=== PATIENT | female | born 1935 | race Caucasian/White ===

== ENCOUNTER 2025-05-16 11:24 | Outpatient (CLI) | payer MEDICARE, OTHER, SELFPAY ==
--- NOTE | 2025-05-16 11:31 | CT_ITS ---
APPROVED REPORT Fitness Instructor: CLINICAL INDICATION Chest Pain TECHNIQUE Image Acquisition: A 128 slice MDCT scanner ([employer]) was used for data acquisition. A noncontrast coronary calcium scan was performed. A CT attenuation threshold of 130 Hounsfield units (HU) was used for the detection of calcium in contiguous voxels of 1 sq mm in area to be counted as individual lesions. Bolus tracking in the ascending aorta with a threshold of 180 HU was performed. Immediately afterwards, ECG synchronized cardiac CT was then performed from the cardiac base to apex using retrospective gating with ECG tube current modulation. A total of 85 mL of Isovue 370 mg/mL contrast medium was administered at 5 mL/sec followed by a saline flush using a biphasic injection protocol. A tube voltage of 120 KVp was used. The patient received the following medications prior to the cardiac CT. 0.4 mg of sublingual nitroglycerin The average heart rate at the time of acquisition was 57 bpm and regular. Image Reconstruction Transaxial images were reconstructed at 0.67 mm slide thickness. Data was reviewed interactively on an advanced workstation capable of 2 and 3-dimensional displays in all conventional reconstruction formats, including multiplanar reformations, maximum intensity projections, curved multiplanar reformations, and volume rendered reconstructions. When applicable, selected routine images describing the relevant coronary anatomy and pathology were saved and sent to PACS. Complications None Technical Quality Overall image quality was fair. Coronary artery opacification was adequate. Total DLP (Dose-Length Product) is 2283.8 mGy-cm. The reported value represents the total of one or more individual components during the CT acquisition of this date and at this time, and as such, the same value may appear in more than one CT report depending on the interpreting/reporting physicians. COMPARISON None FINDINGS CT Coronary Calcium Scoring LMA (Left Main Artery) = 0 LAD (Left Anterior Descending) = 0 LCX (Left Coronary Circumflex) = 0 RCA (Right Coronary Artery) = 0 Total Calcium Score = 0 using the AJ-130 method. The interpretation of the calcium heart score is based on the following continuum*: 0 = no calcified plaque detected (risk of coronary artery disease is very low ??? less than 5%) 1-10 = calcium detected in extremely minimal levels (risk of coronary diseases is still low ??? less than 10%) 11-100 = mild levels of plaque detected with certainty (mild or minimal narrowing of heart arteries is likely) 101-400 = definite,at least moderate levels of plaque detected (relatively high risk of a heart attack within 3-5 years) >401-999 = extensive levels of plaque detected (high risk of heart attack, high levels of vascular disease are present, high likelihood of at least one significant coronary narrowing) *The calcium heart score quantifies the burden of coronary calcification/plaque in the coronary arteries. The calcium heart score is not able to evaluate the presence or burden of non-calcified (i.e. soft) plaque. There is calcification in the aortic valve, mitral annulus, and the ascending, transverse, and descending thoracic aorta. Coronary CT Angiography The coronary arterial system is right dominant. Quantitative Stenosis Grading: Left Main (LM): The left main originates normally from the left sinus of Valsalva. The LM bifurcates into the left anterior descending artery and left circumflex artery. The LM is patent with no evidence of atherosclerosis. Left Anterior Descending (LAD) and Diagonal Branches: The LAD gives off 3 diagonal branch(es). The LAD and its branches are patent with no evidence of atherosclerosis. There is no evidence of LAD-myocardial bridge. Left Circumflex (LCX) and Obtuse Marginals (OM): The LCX gives off 1 Obtuse Marginal (OM) branch(es). The LCX and its branches are patent with no evidence of atherosclerosis. Right Coronary Artery (RCA): The RCA originates normally from the right sinus of Valsalva. The RCA gives off a posterior descending artery (PDA) and posterolateral (PL) branches. The RCA and its branches are patent with no evidence of atherosclerosis. Non-Coronary Cardiac Findings: Analysis of the left ventricular (LV) structure and function was performed after 3-D reconstruction of the LV from axial images, with user-corrected automatic contouring for assessment of LV volumes and user-defined reconstruction from oblique planes for measurement of 3-D cardiac structure and function. -The left ventricle systolic function is normal. -There is no left atrial appendage filling defect. Two right pulmonary veins and two left pulmonary veins drain normally into the left atrium. -No pericardial thickening or calcification. -Central and branch pulmonary arteries in the jhadh-gw-zeso are unremarkable. -Thoracic aorta within the visualized thoracic aortic-branches in the tdwob-kx-vinh is unremarkable. Extracardiac Structures -Increase in pulmonary interstitial markings with ground glass opacities bilaterally. IMPRESSION -Fair image quality due to significant motion and blurring artifact (most notable in the proximal RCA segment interpretation). -Absence of coronary calcification with an Agatston score = 0 using the AJ-130 method. -No obvious evidence of significant flow-limiting atherosclerosis of the coronary arteries. -CAD-RADS 0. Management recommendations per ACC/AHA guidelines*, as clinically appropriate. -Calcification in the aortic valve, mitral annulus, and the ascending, transverse, and descending thoracic aorta. -Increase in pulmonary interstitial markings with ground glass opacities bilaterally. *Recommendations: CAD RADS 0: Reassurance. Consider non-atherosclerotic causes of chest pain. CAD RADS 1: Consider non-atherosclerotic causes of chest pain. Consider preventive therapy and risk factor modification. CAD RADS 2: Consider non-atherosclerotic causes of chest pain. Consider preventive therapy and risk factor modification, particularly for patients with nonobstructive plaque in multiple segments. CAD RADS 3: Consider further functional testing. Consider symptom-guided anti-ischemic and preventive pharmacotherapy as well as risk factor modification per published guideline statements. CAD RADS 4A: Consider further functional testing or invasive coronary angiography with revascularization per published guideline statements. Consider symptom-guided anti-ischemic and preventive pharmacotherapy as well as risk factor modification per published guideline statements. CAD RADS 4B: Invasive coronary angiography recommended with revascularization per published guideline statements. Consider symptom-guided anti-ischemic and preventive pharmacotherapy as well as risk factor modification per published guideline statements. CAD RADS 5: Consider invasive angiography and/or viability assessment with revascularization per published guideline statements. Consider symptom-guided anti-ischemic and preventive pharmacotherapy as well as risk factor modification per published guideline statements. CRITICAL RESULT None COMMUNICATION Per this written report The coronary and cardiac findings of this CCTA were reviewed, reported, and signed by Chandra Deras MD (Warper Tender) Conclusion Electronically signed by : Josselyn Deras MD 05/17/2025 14:09:09
[2025-05-16 11:44] VITALS: BMI 23.6
--- OUTSIDE RECORDS SUMMARY | 2025-05-16 12:08 | XMS_ITS | Continuity of Care Document ---
Author Organization [facility] [place] [facility] Address [address] [place] [address] Care Team Providers Care Track Vehicle Repairer Name Role Phone MATIAS SANCHEZ Furnace Fitter Unavailable CHASE BAKER Primary Care Provider Assessment No assessment recorded. Plan of Treatment Reminders Order Date Submit Date Provider Last Modified By Organization Details Last Modified Time Details Appointments OV EST 30 2024 11:30A M Matias Sanchez MD Not available Not available Not available OV EST 30 2024 01:30P M RICHIE KAUR NP, S Not available Not available Not available Lab None recorded. Referral None recorded. Procedures None recorded. Surgeries None recorded. Imaging XR, pelvis 2024 025 ely [facility], [address] [place], [address], 05/09/2025 15:54:09 Medication Orders bupivacai ne HCl 0.5 % (5 mg/mL) injection solution 2024 025 [id number] [facility] [id number], [address] [place], [address], 05/09/2025 15:54:09 triamcino lone acetonide 40 mg/mL suspensio n for injection 2024 025 [id number] [facility] [id number], [address] [place], [address], 05/09/2025 15:54:09 Patient TargetsNo targets recorded. Patient InstructionsNo instructions recorded. Reason for Referral None Reported. Results Created Date Observation Date Name Description Value Unit Range Abnormal Flag Note LastModifiedBy Organization Detail LastModifiedTime 05/01/20 elect rocar diogr am No observ ation record ed. [email or web address] Not Available 2024 11:51:28 05/01/2005/02/2025 elect rocar diogr am No observ ation record ed. RIKA Helton [address], [place], [address], 05/02/2025 14:08:16 05/09/20 XR, pelvi s No observ ation record ed. RIKA Stef [facility] [address] [place] [address] , [place], [address], 05/09/2025 13:50:42 05/11/2005/11/2025 , raciel fairchild, malaika id arter y [facility] [place] [facility] Ce Name: BRANDON AdairRAFIA ROGERS [facility] Medica [address] Phys: [place] [address] : 1934 Age: 89 Sex: F Acct: [id number] Loc: G.US PHONE #: Exam Date: 2024 Status : DEP CLI FAX #: Rad# [id number] Unit# [id number] Admit Date: 2024 EXAMS: CPT CODE: [id number] 682 CAROTI D DUPLEX DOPPLE R [id number] PROCED URE: US CAROTI D DOPPLE R BILATE RAL, 2024 8:41 AM CDT CLINIC AL INDICA TION: BILATE RAL ARTERY OCCLUS ION. TECHNI QUE: Real-t ree graysc zen, color flow and spectr al Dopple r sonogr aphic images were obtain ed of the extrac ranial caroti d system using a linear transd ucer. COMPAR NIRALI: Februa ry 2020 FINDIN GS: RIGHT: Common caroti d artery : 67-70 cm/s Daytime Caregiver al caroti d artery : 55-108 cm/s Customer Advocacy Manager al caroti d artery : 124 cm/s Right ICA/CC A ratio: 1.5 Plaque : Mild to modera te scatte red plaque Verteb ral artery : Antegr ashlee. 91 cm/s LEFT: Common caroti d artery : 91-150 cm/s Daytime Caregiver al caroti d artery : 82-117 cm/s Customer Advocacy Manager al caroti d artery : 133 cm/s Left ICA/CC A ratio: 0.8 Plaque : Mild scatte red plaque Verteb ral artery : Antegr ashlee. 67 cm/s IMPRES KRISTINA: No hemody namica lly signif icant stenos is (great er than 50%) within the extrac ranial machine learning intern al caroti d arteri es. Electr onical ly signed by: Zechariah perez MD 2024 11:37 AM EDT RP Workst ation: [id number] Electr onical ly Signed by ZECHARIAH PEREZ MD on 2024 at 1132 Report ed and signed by: ZECHARIAH TRAN MD PAGE 1 Signed Report (JOVAN NUED) [facility] [place] [facility] Name: BRANDON AdairRAFIA [facility] Medica l [employer] Phys: Lauren [place] [address] : 1934 Age: 89 Sex: F Acct: [id number] Loc: G. PHONE #: Exam Date: 2024 Status : DEP CLI FAX #: Rad# [id number] Unit# [id number] Admit Date: 2024 EXAMS: CPT CODE: [id number] 682 CAROTI D DUPLEX DOPPLE R [id number] CC: Seng Baker MD; Joana aguilera APRN Dictat ed Date/T ree: 2024 (1132) Techno logist : LINDSA Y DARBY Transc ribed Date/T ree: 2024 (1132) Transc riptio nist: DR.[email or web address] Santiago onic Signat ure Date/T ree: 2024 (1132) Printe d Date/T ree: 2024 (1140) BATCH NO: N/A PAGE 2 Signed Report CC'ed Logic: Orderi ng Provid er: JURGEN VAUGHN LL Attend ing Provid er: JURGEN VAUGHN LL Referr ing Provid er: JURGEN VAUGHN LL Consul ting Provid er: SAMUEL LOU [email or web address], [place], [address], 05/11/2025 17:03:41 Result Notes None recorded. Problems Name Problem SNOMED Code Status Onset Date Resolution Date Notes Provider Name and Address Organization Details Recorded Time Essential hypertension 36456486 Active 2022 RICHIE KAUR NP, S [facility] [employer] [facility],Jul[place] [address], [address], [place] - [facility] [place] [facility] [place] 3 12:21:15 Coronary arterioscleros is 62241854 Active 2022 RICHIE KAUR NP, [facility] [employer] [facility],Julissa te [address] [place] [address], [address], [place] - [facility] [place] [facility] [place] 3 12:21:17 Mitral valve regurgitation 78426001 Active 2022 RICHIE KAUR NP, S [facility] [employer] [facility],Julissa te [address] [place] [address], [address], [place] - [facility] [place] [facility] [place] 3 12:21:18 Tachycardia 4786695 Active 2022 RICHIE KAUR NP, [facility] [employer] [facility],Julissa te [address] [place] [address], [address], [place] - [facility] [place] [facility] [place] 3 12:21:19 Bradycardia 09261059 Active 2022 RICHIE KAUR NP, S [facility] [employer] [facility],Julissa te [address] [place] [address], [address], [place] [facility] 3 12:21:21 Diastolic dysfunction 2687465 Active 2022 Matias Sanchez MD [address] [place] [address],[address], [place], [address], [place] - [facility] [place] 3 10:59:58 Dyspnea on exertion 15427584 Active 2023 Matias Sanchez MD [address] [place] [address],[address], [place], [address], [place] [facility] [place] [facility] [place] 4 11:08:02 Chest pain 27990905 Active 2024 Matias Sanchez MD [address] [place] [address],[address], [place], [address], [place] - [facility] & [place] 5 11:17:19 Bilateral carotid artery occlusion 929534560 Active 2024 Matias Sanchez MD [address] [place] [address],[address], [place], [address], [place] [facility] [place] [facility] [place] 5 11:36:46 Problem Notes None recorded. Procedures Surgical History Date Name Laterality Status Provider Name and Address Organization Details Recorded Time Back Surgery completed Tracie LOWE - [facility] [place] [facility] [place] 04/05/2024 10:40:31 Partial hysterectomy completed Toshia Reynolds [facility] [place] [facility] [place] 05/28/2022 11:30:55 primary laminectomy excision of lumbar intervertebral disc completed Toshia Reynolds [facility] [place] [facility] [place] 05/28/2022 11:40:55 complete repair of rotator cuff completed Toshia Reynolds [facility] [place] [facility] [place] 05/28/2022 11:42:09 cholecystectomy completed Toshia Reynolds [facility] [place] [facility] [place] 05/28/2022 11:43:02 tonsillectomy completed Toshia Reynolds [facility] [place] [facility] [place] 05/28/2022 11:43:10 Imaging Results None recorded. Procedure Notes None recorded. Medical Equipment None Reported. Allergies No known drug allergies Medications Name Sig Start Date Stop Date Status Note LastModified by Organization Details LastModified Time metformin 500 mg tablet active Not Available Not Available Not Available biotin 5 mg capsule active Not Available Not Available N ot Available valacyclov ir 1 gram tablet 12/14 completed Not Available Not Available Not Available hydrocodon e 5 mg-acetami nophen 325 mg tablet NEEDED per pt 02/28 completed Not Available Not Available Not Available bupivacain e HCl 0.5 % (5 mg/mL) injection solution Take 2 mL by injectio n route. 2024 active Not Available Not Available Not Avai lable prednisone 20 mg tablet 03/13 completed Not Available Not Available Not Available prednisone 5 mg tablet active Not Available Not Available Not Available Protonix 20 mg tablet,del ayed release Take 2 tablets every day by oral route. 12/14 completed Not Available Not Available Not Available ciprofloxa bharath 500 mg tablet 03/13 completed Not Available Not Available Not Available meloxicam 7.5 mg tablet TAKE 1 TABLET BY MOUTH EVERY DAY active PCP raised dose to 15 mg once a day Not Available Not Available Not Available oxycodone- acetaminop hen 5 mg-325 mg tablet 12/14 completed Not Available Not Available Not Available estradiol 1 mg tablet Take 1 tablet every day by oral route. active Not Available Not Available No t Available Kenalog 10 mg/mL suspension for injection Take 40 mg by injectio n route. 02/28 completed Not Available Not Available Not Available meclizine 25 mg tablet 02/28 completed Not Available Not Available Not Available triamcinol one acetonide 40 mg/mL suspension for injection Take 1 mL by injectio n route. 2024 active Not Available Not Available Not Avai lable prednisone 2.5 mg tablet 08/10 completed Not Available Not Available Not Available cephalexin 500 mg capsule 07/17 completed Not Available Not Available Not Available nitroglyce rin 0.[address] by sublingu al route. 08/07 completed Not Available Not Available Not Available diclofenac sodium 75 mg tablet,del ayed release 08/10 completed Not Available Not Available Not Available clobetasol 0.05 % scalp solution 12/14 completed Not Available Not Available Not Available etodolac 500 mg tablet Take 1 tablet twice a day by oral route. 08/10 completed Not Available Not Available Not Available diazepam 5 mg tablet 09/13 completed Not Available Not Available Not Available amoxicilli n 500 mg-potassi um clavulanat e 125 mg tablet 03/13 completed Not Available Not Available Not Available bupivacain e (PF) 0.5 % (5 mg/mL) injection solution Take 20 mg by injectio n route. 02/28 completed Not Available Not Available Not Available duloxetine 20 mg capsule,de layed release Take 1 capsule every day by oral route. 12/14 completed Not Available Not Available Not Available duloxetine 30 mg capsule,de layed release Take 1 capsule every day by oral route. 08/10 completed Not Available Not Available Not Available PreserVisi on AREDS 4,296 mcg-226 mg-90 mg capsule Take 2 capsules every day by oral route. active Not Available Not Available No t Available aspirin 12/14 completed Not Available Not Available Not Available Vitamin D 08/10 completed Not Available Not Available Not Available Vitamin D3 active Not Available Not Av ailable Not Available Vitamin B12 active Not Available Not Available Not Available Linzess 145 mcg capsule TAKE ONE (1) CAPSULE BY MOUTH NEEDED active Not Available Not Available No t Available magnesium 200 mg (as magnesium oxide) chewable tablet Take 1 tablet every day by oral route. active Not Available Not Available No t Available Vitals None Recorded Social History Question Answer Notes LastModified by Organizat ion Details LastModified Time Tobacco Smoking Status Never Smoker Toshia trammell, [place] - [facility] [place] [facility] [place] 05/28/2022 11:30:40 What Is Your Level Of Caffeine Consumption? Moderate Information not available 09/13/2023 What Type Of Diet Are You Following? REGULAR Information not available 09/13/2023 What Was The Date Of Your Most Recent Tobacco Screening? 1935 Information not available 04/05/2024 Are You Passively Exposed To Smoke? No Information not available 04/05/2024 Sex: Unknown Functional Status Question Answer Note LastModified by Organizat ion Details LastModified Time Do you use any illicit or recreational drugs? No [email or web address] Information not available 08/10/2022 Do you or have you ever used any other forms of tobacco or nicotine? No Information not available 09/13/2023 What is your level of alcohol consumption? None [email or web address] Information not available 08/10/2022 What is your exercise level? Moderate [id number] Information not available 03/01/2023 Mental Status None recorded. Family History Relationship Description Onset Age of this Age Resolved Age Notes LastModified by Organization Details LastModified Time Mother Family history of malignant neoplasm [email or web address] Not available 2021 11:30:25 Medical History Condition Response Coronary Artery Disease Y Arthritis Y Low Blood Pressure Y GERD/Reflux Y Gynecological HistoryNo gynecological history recorded. Obstetrics History GPAL:G 0 P 0 0 0 0 Immunizations Vaccine Type Date Status Note Provider Nam e and Address Organization Details Recorded Time COVID-19, mRNA, LNP-S, PF, 100 mcg/0.5mL dose or 50 mcg/0.25mL dose 1 completed Yelena trammell, [place] - [facility] [place] 08/10/2022 11:21:35 Influenza, high-dose, quadrivalent, PF 1 completed Yelena trammell, [place] - [facility] [place] 08/10/2022 11:21:35 COVID-19, mRNA, LNP-S, PF, 100 mcg/0.5mL dose or 50 mcg/0.25mL dose 1 completed Yelena Sal null, [place] - [facility] [place] 08/10/2022 11:21:35 COVID-19, mRNA, LNP-S, PF, 100 mcg/0.5mL dose or 50 mcg/0.25mL dose 1 completed Yelena trammell, [place] - [facility] [place] 08/10/2022 11:21:35 Tdap 2 completed Yelena trammell, [place] [facility] [place] [facility] [place] 08/10/2022 11:21:35 zoster recombinant 2 completed Yelena Sal null, [facility] - [facility] [place] [facility] [place] 08/10/2022 11:21:35 zoster recombinant 2 completed Yelena Sal null, [facility] [place] [facility] [place] 08/10/2022 11:21:35 Pneumococcal conjugate PCV20, polysaccharide ROM817 conjugate, adjuvant, PF 2 completed Yelena Sal null, [place] - [facility] [place] [facility] [place] 08/10/2022 11:21:35 Influenza, high-dose, quadrivalent, PF 2 completed Not Available [facility] 05/09/2025 13:37:44 COVID-19, mRNA, LNP-S, bivalent, PF, 50 mcg/0.5 mL or 25mcg/0.25 mL dose 3 completed Not Available [facility] 05/09/2025 13:37:44 Influenza, high-dose, quadrivalent, PF 3 completed Not Available [facility] 05/09/2025 13:37:44 Influenza, high-dose, trivalent, PF 4 completed Not Available [facility] 05/09/2025 13:37:44 Past Encounters Encounter ID Performer Location Encounter Start Date Encounter Closed Date Diagnosis/Indication Diagnosis SNOMED-CT Code Diagnosis ICD10 Code Diagnosis IMO Codes Diagnosis Note [id number] RICHIE KAUR NP, S [place] [address] [place] [address] 05/01/2025 09:32:07 05/01/2025 11:13:45 Essential hypertension 73754127 I10 Tachycardia 0669008 R00. 0 Mitral irish ve regurgitation 16961037 I34.0 Coronary arteriosclerosis 69420273 I25.10 Diastolic dysfunction 35 91748 I51.9 Bilateral carotid artery occlusion 263265734 I65.23 [id number] Angina pectoris 95608410 0 I20.9 [id number] MD STEF Cook [address] [address] 05/09/2025 13:36:08 05/09/2025 14:36:11 Arthritis of left sacroiliac joint 0032758514 236233 M46.5 3605066884 Health Concerns Section Related Observation LastModified by Organization Detai ls LastModified Time None Recorded Concern Status LastModified by Organization Details LastModified Time None Recorded Payers Encounter Date Sequence Insurance Name Policy Number Policy Mccabe Covered Member ID Mccabe Member ID Guarantor Name 05/09/2025 1 [place] Cecilia Monica Kyle [id number] Cecilia Kyle 05/09/2025 2 DEVIN (MEDICARE SUPPLEMENT) Cecilia Kyle [id number] Cecilia Kyle Notes Date Note Type Note Provider Name and Address Organization Details Recorded Time 05/09/2025 text/html Left SI joint painHas seen pain mgmt in past for SI joint injections- at least a year and a half agoTakes MeloxicamPelvis x-ray in office 05.09.25 Onofre Bright MD [address] [place] [address],[address], [place], [address] [place] 05/09/2025 15:45:32 OBGyn Episode No OBEpisode recorded.
--- OUTSIDE RECORDS SUMMARY | 2025-05-16 12:08 | XMS_ITS | Clinical Summary ---
Author Organization [facility] PAT Cage T Address [address] [place] [address] Phone Care Team Providers Care Hand Cutter Apprentice Name Role Phone Felipe March Primary Care Provider [phone] Allergies No known active allergies Medications ESTRADIOL ORAL Take 1 mg by mouth daily. Active predniSONE (DELTASONE) 5 mg Oral Tablet Take 5 mg by mouth daily. Active ergocalciferol, vitamin D2, (VITAMIN D2 ORAL) Take by mouth daily. Active MULTIVITAMIN ORAL Take by mouth daily. Active BIOTIN ORAL Take by mouth daily. Active Surgical History Surgery Date Site/Laterality Comments HYSTERECTOMY partial ROTATOR CUFF REPAIR TONSILLECTOMY BACK SURGERY ERCP 11/16/2017 N/A ENDOSCOPIC RETROGRADE CHOLANGIOPANCREOGRAPHY with sphincterotomy and balloon sweep ; Surgeon: Noé Orozco DO; Location: [facility]; Service: Endoscopy Medical History Medical History Date Comments Arthritis Social History Tobacco Use Types Packs/Day Years Used Date Smoking Tobacco: Never Smokeless Tobacco: Never Alcohol Use Standard Drinks/Week Comments No 0 (1 standard drink = 0.6 oz pur e alcohol) Comments No Sex and Gender Information Value Date Recorded Sex Assigned at Not on file Legal Sex Female 1:54 PM EDT Gender Identity Not on file Sexual Orientation Not on file Last Filed Vital Signs Vital Sign Reading Time Taken Comments Blood Pressure 151/75 11/16/2017 3:00 PM EDT Pulse 67 11/16/2017 3:00 PM EDT Temperature 36.3 C (97.3 F) 11/16/2017 2:31 PM EDT Respiratory Rate 16 11/16/2017 3:00 PM EDT Oxygen Saturation 98% 11/16/2017 3:00 PM EDT Inhaled Oxygen Concentration - - Weight 73 kg (161 lb) 11/15/2017 1:17 PM EDT Height 170.2 cm (5' 7 ) 11/15/2017 1:17 PM EDT Body Mass Index 25.22 11/15/2017 1:17 PM EDT Plan of Treatment Health Maintenance Due Date Last Done Comments Wellness Exam Medicare 1938 DTaP/TDaP/Td (1 - Tdap) 1954 Pneumococcal Vaccine 50+ (1 of 1 - PCV) 1985 Zoster (1 of 2) 1985 Bone Density Screening 2000 RSV or 60+ (1 - 1-d ose 75+ series) 2010 COVID-19 Vaccine ( - 2024-2 6 season) 2025 Influenza Vaccine (#1) 2025 Hepatitis B Vaccine Aged Out No longe r eligible based on patient's age to complete this topic Meningococcal B Vaccine Aged Out No l onger eligible based on patient's age to complete this topic Insurance [employer] [place] [address] Care Teams Hand Cutter Apprentice Relationship Specialty Start Date End Date Felipe March PCP - General Family Medicine 03/09/14
--- OUTSIDE RECORDS SUMMARY | 2025-05-16 12:08 | XMS_ITS | Data Portability ---
Author Organization [place] - [facility] Formerly [facility] Address [address] [place] [address] Care Team Providers Care Radiator Cleaner Name Role Phone MATIAS SANCHEZ Home Support Worker Unavailable CHASE BAKER Primary Care Provider [phone] Assessment Encounter Date Assessment Date Assessment LastModified by Organization Details LastModified Time 09/13/2024 09/13/2024 Preoperative evaluation. She had a Myoview stress test done which showed no ischemia. Normal exercise EKG. She had moderate reduction in functional capacity but no EKG changes. Normal myocardial perfusion and normal left ventricular systolic function. She has some calcification of the valves on echocardiogram with mild mitral insufficiency and normal pressures in the heart with normal function at 60%. Chest pain is atypical. It has a aching that occurs on occasion. It is always at rest. No nitroglycerin use. No exertional pressure tightness or heaviness. Blood pressure and heart rate are under excellent control. We will continue the same medical regimen. She does take baby aspirin. She is okay to hold this for surgery. No further cardiac testing needed prior to surgery. Meds and chart reviewed in full today. Follow-up in Cardiology Clinic in 3 months. Last cardiac catheterization was 3 years ago and showed mild diffuse coronary disease Patient Education was printed, I have reviewed the Past Medical, Family, and Social Histories along with ROS and all orders in today's record, and have noted any changes. Medications, charts and records reviewed in full today. ECHO 08/24/24: Normal left ventricular size and function with an estimated ejection fraction is 60%. Mild calcification of the valves with mild mitral insufficiency and normal pressures in the heart - Myoview 08/24/24: 1. Normal exercise EKG. 2. Moderate reduction in functional capacity. 3. Intermediate risk Eagle treadmill score secondary to functional capacity. 4. Normal myocardial perfusion on Myoview imaging. 5. Normal left ventricular systolic function. ECHOCARDIOGRAM: 09/29/2023 - Estimated ejection fraction is 60-65%. There is mild concentric hypertrophy of the left ventricle. Normal mitral valve, with mild to moderate mitral insufficiency. PREVIOUS ECHOCARDIOGRAM:Aug with ejection fraction 65-70% [id number] mitral insufficiency PREVIOUS MYOVIEW STRESS TEST: 09/19/2020 - moderate reduction in functional capacity. Intermediate risk Eagle treadmill score. Ischemia of a moderate portion of the apical anterior wall on myocardial perfusion imaging. PREVIOUS CAROTID ULTRASOUND: 09/19/2020 - On the right, mild intimal thickening without discrete plaque. Elevated velocity of the ICA, increased since the prior study, now within range of 60-79% stenosis. On the left, interval increase in velocity of the ICA, now was in range of 60-79% stenosis. CTA neck would better assess. CARDIAC CATHETERIZATION:[facility] 2020 with mild coronary artery disease with normal left ventricular function and mild carotid artery stenosis by angiography. - Plan: No further cardiac testing needed prior to surgery Okay to hold aspirin 5-7 days prior to any procedure Monitor blood pressure and heart rate EKG at follow-up Follow-up in Cardiology Clinic in 3 months -Continue other current medications. -Continue aggressive risk factor modification. -Recommend LDL less than 70. -Encouraged regular exercise and activity. - This note was dictated using EdSurge software. If something is unclear, or does not make sense, please do not hesitate to contact our office at [phone] for clarification. [email or web address] Not available 09/13/2024 11:17:01 12/14/2024 12/14/2024 Doing very well. No difficulties with back surgery. Still has some weakness in the leg was no pain. EKG today shows normal sinus rhythm with a heart rate of [address] or T-wave changes. Blood pressure and heart rate are under excellent control. We will see her back in 6 months. She looks great. She is still getting around without any issues at all. I am not going to make any changes in the medical regimen. We will see her back in 6 months. Meds and chart reviewed in full today Patient had an echocardiogram and a stress test in July. Both of these came back fine. Mild mitral insufficiency. Normal pressures in the heart mild calcification of the valves. She does have carotid artery stenosis. We need to follow this every year to. Will do a carotid ultrasound at follow-up Patient Education was printed, I have reviewed the Past Medical, Family, and Social Histories along with ROS and all orders in today's record, and have noted any changes. Medications, charts and records reviewed in full today. - EKG today reveals Normal sinus rhythm with no ST or T-wave changes - LAST ECHO:08/24/24: Normal left ventricular size and function with an estimated ejection fraction is 60%. Mild calcification of the valves with mild mitral insufficiency and normal pressures in the heart. LAST ISCHEMIC EVAL:08/24/24: Normal exercise EKG. Moderate reduction in functional capacity. Intermediate risk Eagle treadmill score secondary to functional capacity. Normal myocardial perfusion on Myoview imaging. Normal left ventricular systolic function. PREVIOUS CAROTID ULTRASOUND: 09/19/2020 - On the right, mild intimal thickening without discrete plaque. Elevated velocity of the ICA, increased since the prior study, now within range of 60-79% stenosis. On the left, interval increase in velocity of the ICA, now was in range of 60-79% stenosis. CTA neck would better assess. LAST HEART CATH: 09/2020 with mild coronary artery disease with normal left ventricular function and mild carotid artery stenosis by angiography. LAST LDL: 09/26/2020 value of 119 LAST CNI: None on file. PAST C: None on file. Plan: Monitor blood pressure and heart rate Monitor cardiac symptoms Blood work as per primary care Follow-up in Cardiology Clinic in 6 months Repeat carotid ultrasound at follow-up -Continue other current medications. -Continue aggressive risk factor modification. -Recommend LDL less than 100. -Encouraged regular exercise and activity. - I, Asha Mendez, am scribing for, and in the presence of, Matias Sanchez MD. - I, Matias Sanchez M.D. performed the services as described in this documentation, as scribed by Asha Mendez in my presence, and it is both accurate and complete. - This note was dictated using EdSurge software. If something is unclear, or does not make sense, please do not hesitate to contact our office at [phone] for clarification. [email or web address] Not available 12/14/2024 11:36:38 05/01/2025 05/01/2025 Patient Educatio n was printed, I have reviewed the Past Medical, Family, and Social Histories along with ROS and all orders in today's record, and have noted any changes. Medications, charts and records reviewed in full today. - EKG today reveals sinus rhythm with a rate of 61 beats per minute, incomplete right bundle-branch block, poor R-wave progression, abnormal EKG. Blood pressure 128/82, heart rate 61, oxygen saturation 96%. Weight 155 lb. Weight is stable from prior. - LAST ECHO:08/24/24: Normal left ventricular size and function with an estimated ejection fraction is 60%. Mild calcification of the valves with mild mitral insufficiency and normal pressures in the heart. LAST ISCHEMIC EVAL:08/24/24: Normal exercise EKG. Moderate reduction in functional capacity. Intermediate risk Eagle treadmill score secondary to functional capacity. Normal myocardial perfusion on Myoview imaging. Normal left ventricular systolic function. PREVIOUS CAROTID ULTRASOUND: 09/19/2020 - On the right, mild intimal thickening without discrete plaque. Elevated velocity of the ICA, increased since the prior study, now within range of 60-79% stenosis. On the left, interval increase in velocity of the ICA, now was in range of 60-79% stenosis. CTA neck would better assess. LAST HEART CATH: 09/2020 with mild coronary artery disease with normal left ventricular function and mild carotid artery stenosis by angiography. - Plan: Carotid ultrasound CTA of the coronaries. Follow-up in six to eight weeks. - -Continue other current medications. -Continue aggressive risk factor modification. -Recommend LDL less than 70. -Encouraged regular exercise and activity. - This note was dictated using EdSurge software. If something is unclear, or does not make sense, please do not hesitate to contact our office at [phone] for clarification. [email or web address] Not available 05/01/2025 12:52:45 Plan of Treatment Reminders Order Date Submit Date Provider Last Modified By Organization Details Last Modified Time Details Appointments OV EST 30 2024 11:30A Lauren Sanchez MD Not available Not available Not available OV EST 30 2024 01:30P Lauren KAUR, RETAIL PRODUCT ADVISOR, S Not available Not available Not available Lab None recorded. Referral None recorded. Procedures None recorded. Surgeries None recorded. Imaging XR, pelvis 2024 ely [facility], [address] [place] [address] , [place], [address], 05/09/2025 15:54:09 CT, angiogram , coronary arteries, w/wo contrast 2024 025 [email or web address] Not available 05/09/2025 07:35:09 US, duplex, carotid artery 2024 [facility], [address] , [place], [address], 05/11/2025 11:42:07 electroca rdiogram 2024 025 uri [facility], [address] [place] [address] [address], [place], [address], 05/02/2025 11:44:14 electroca rdiogram 2024 025 [email or web address] [facility], [address] [place] [address] [address], [place], [address], 12/14/2024 11:36:58 Medication Orders bupivacai ne HCl 0.5 % (5 mg/mL) injection solution 2024 025 [facility] [id number], [address] [facility] [place], [address], 05/09/2025 15:54:09 triamcino lone acetonide 40 mg/mL suspensio n for injection 2024 025 [email or web address] [facility] [id number], [address] [facility] , [place], [address], 05/09/2025 15:54:09 Patient TargetsNo targets recorded. Patient Instructions Encounter Date Encounter Id Patient Instructions Last Modified By Organization Details Last Modified Time 02/28/2025 [id number] I have personall y reviewed the data obtained and entered from the scribe, manager medical affairs or nurse for this patient for this patient encounter. Patient with dizziness. Possible central versus peripheral vestibular dysfunction. Patient to begin vestibular exercises. Clinically no evidence of mastoiditis. Follow-up in 3-4 weeks. [email or web address] Not available 02/28/2025 14:40:32 Reason for Referral None Reported. Results Created Date Observation Date Name Description Value Unit Range Abnormal Flag Note LastModifiedBy Organization Detail LastModifiedTime 09/02/1909/02/2024 - ECHO w/spe c/col or flow [facility] Name: RAFIA GUY KEN [facility] Knock Knock Phys: Lauren Slaughter APRN [facility] [place] [address] : 1934 Age: 89 Sex: F Acct: [id number] Loc: GBALBIR PHONE #: [phone] Exam Date: 2024 Status : DEP CLI FAX #: Rad# [id number] Unit# [id number] Admit Date: 2024 EXAMS: CPT CODE: [id number] ECHO W/SPEC /COLOR FLOW [id number] Reason for study: Dyspne a Left ventri cular diasto le: 5.1 Left ventri cular systol e: 3.2 Septal wall thickn ess: 0.9 Technology Resource Teacher ior wall thickn ess: 1.0 Right ventri cular diasto le: 1.1 Left Atrium : 3.0 Aortic root: 3.1 TR veloci ty: 2.59 m/s Impres kristina: 1. Normal left ventri cular size and functi on with an estima elisa ejecti on fracti on is 60% 2. No segmen brianna wall motion abnorm alitie s 3. Normal left atrial and right atrial size 4. Normal right ventri cular size and functi on 5. Mild mitral annula r calcif icatio n with normal mitral valve leafle t mobili ty and functi on. There is mild mitral insuff icienc y 6. Mild calcif icatio n and thicke joyce of the aortic valve leafle ts with normal aortic valve leafle t mobili ty and functi on. There is no aortic insuff icienc y 7. No perica rdial effusi on 8. Normal aortic root 9. Normal tricus pid valve, with mild tricus pid insuff icienc y. Tricus pid regurg itant jet veloci ty is 2.59 m/s implyi ng a right ventri cular systol ic pressu re of approx imatel y 37 mmHg Electr onical ly Signed by MATIAS SANCHEZ MD on 2024 at 1055 Report ed and signed by: MATIAS SANCHEZ MD PAGE 1 Signed Report (JOVAN NUED) [facility] Med[facility] l Ce Name: RAFIA GUY ROSTRa [employer] Phys: Lauren Slaughter APRNcherrie [facility] [place] [address] : 1934 Age: 89 Sex: F Acct: [id number] Loc: GBALBIR PHONE #: Exam Date: 2024 Status : DEP CLI FAX #: [phone] Rad# [id number] Unit# [id number] Admit Date: 2024 EXAMS: CPT CODE: [id number] [id number] ECHO W/SPEC /COLOR FLOW [id number] CC: Seng Baker MD; Joana aguilera APRN Dictat ed Date/T ree: 2024 (1055) Techno logist : EVA SUTTON Transc ribed Date/T ree: 2024 (1055) Transc riptio nist: DR.LOH BOUCHER Electr onic Signat ure Date/T ree: 2024 (1055) Printe d Date/T ree: 2024 (1057) BATCH NO: N/A PAGE 2 Signed Report CC'ed Logic: Orderi ng Provid er: JURGEN WILKINS Attend ing Provid er: JURGEN WILKINS Referr ing Provid er: JURGEN WILKINS Consul ting Provid er: SAMUEL LOU [email or web address] , [place], [address], 09/04/2024 11:09:02 09/03/19 25 09/03/2024 - [address] rd SPECT wm/ef duty manager [facility] Name: RAFIA GUY [facility] [address] Phys: [place] [address] : 1934 Age: 89 Sex: F Acct: [id number] Loc: RAMIREZ PHONE #: Exam Date: 2024 Status : DEP CLI FAX #: Rad# [id number] Unit# [id number] Admit Date: 2024 EXAMS: CPT CODE: [id number] [id number] MYOCAR D SPECT WM/EF BRAIDER TENDER [address] Reason for study: Angina pector is Patien t exerci sed accord ing to a Gerardo protoc ol for 3.5 minute s achiev ing a work level of max METs 5. The restin g heart rate was 61 bpm and teddy to a maximu m heart rate of 117 bpm which repres ents 89% of the dimas l age-pr edicte d heart rate. Restin g blood pressu re 128/70 mmHg and teddy to a maximu m blood pressu re of 170/82 mmHg. Restin g EKG shows normal sinus rhythm with no ST or T wave change s. With exerci se patien t had less than [address] segmen t depres kristina. No arrhyt hmia. Heart rate and blood pressu re respon se approp riate. Modera te reduct ion in functi onal capaci ty. Eagle treadm ill score +3.5 which is interm ediate risk. Overal l this is a normal exerci se EKG. Myovie w images obtain ed were obtain ed both at stress and rest. The stress and rest Myovie w images show unifor m myocar dial activi ty. The gated images show normal wall motion with an ejecti on fracti on is 69%. 1. Normal exerci se EKG. 2. Modera te reduct ion in functi onal capaci ty. 3. Interm ediate risk Eagle treadm ill score second gabrielle to functi onal capaci ty. 4. Normal myocar dial perfus ion on Myovie w imagin g. 5. Normal left ventri cular systol ic functi on. Electr onical ly Signed by MATIAS SANCHEZ MD on 2024 at 1210 Report ed and signed by: MATIAS SANCHEZ MD CC: Seng Bakre MD; Joana aguilera APRN Dictat ed Date/T ree: 2024 (1210) Techno logist : WING ARBOLEDA BS, BARMAID Transc ribed Date/T ree: 2024 (1210) Transc riptio nist: ER Electr onic Signat ure Date/T ree: 2024 (1210) Printe d Date/T ree: 2024 (1213) BATCH NO: N/A PAGE 1 Signed Report CC'ed Logic: Orderi ng Provid er: JURGEN WILKINS Attend ing Provid er: JURGEN WILKINS Referr ing Provid er: JURGEN WILKINS Consul ting Provid er: SAMUEL LOU [email or web address] , [place], [address], 09/04/2024 11:09:02 12/15/19 elect rocar diogr am No observ ation record ed. RIKA Helton [address], [place], [address], 12/14/2024 11:17:44 12/15/19 25 12/14/2024 elect rocar diogr am No observ ation record ed. [email or web address] Not Available 2024 11:46:54 05/01/20 elect rocar diogr am No observ ation record ed. [email or web address] Not Available 2024 11:51:28 05/01/2005/02/2025 elect harish taylor am No observ ation record ed. RIKA Danie [facility] [address], [place], [address], 05/02/2025 14:08:16 05/09/20 XR, pelvi s No observ ation record ed. RKIA Danie [facility] [address] [facility] , [place], [address], 05/09/2025 13:50:42 05/11/2005/11/2025 , malaika vigil id arter y [facility] Name: GERHARDWARREN GiovanyRAFIA [facility] [employer] [address] Phys: Lauren Slaughter APRN [place] [id number] : 1934 Age: 89 Sex: F Acct: [id number] Loc: PHONE #: [phone] Exam Date: 2024 Status : DEP CLI FAX #: Rad# [id number] Unit# [id number] Admit Date: 2024 EXAMS: CPT CODE: [id number] 682 CAROTI D DUPLEX DOPPLE R [id number] PROCED URE: US CAROTI D DOPPLE R [...] Common caroti d artery : 67-70 cm/s Entry Level Project Engineer al caroti d artery : 55-108 cm/s Technology Resource Teacher al caroti d artery : 124 cm/s Right ICA/CC A ratio: 1.5 Plaque : Mild to modera te scatte red plaque Verteb ral artery : Antegr ashlee. 91 cm/s LEFT: Common caroti d artery : 91-150 cm/s Entry Level Project Engineer al caroti d artery : 82-117 cm/s Technology Resource Teacher al caroti d artery : 133 cm/s Left ICA/CC A ratio: 0.8 Plaque : Mild scatte red plaque Verteb ral artery : Antegr ashlee. 67 cm/s IMPRES KRISTINA: No hemody namica lly signif icant stenos is (great er than 50%) within the extrac ranial phd internship al caroti d arteri es. Electr onical ly signed by: Zechariah perez MD 2024 11:37 AM EDT RP Workst ation: [id number] Electr onical ly Signed by ZECHARIAH PEREZ MD on 2024 at 1132 Report ed and signed by: ZECHARIAH TRAN MD PAGE 1 Signed Report (JOVAN NUED) [facility] Name: BRANDON RAFIA Adair [facility] Knock Knock Phys: Lauren Slaughter [place] [facility] [place] [address] : 1934 Age: 89 Sex: F Acct: [id number] Loc: Freddy. PHONE #: Exam Date: 2024 Status : DEP CLI FAX #: Rad# [id number] Unit# [id number] Admit Date: 2024 EXAMS: CPT CODE: [id number] 682 CAROTI D DUPLEX DOPPLE R [id number] CC: Seng Baker MD; Joana aguilera APRN Dictat ed Date/T ree: 2024 (1132) Techno logist : LINDSA Y DARBY Transc ribed Date/T ree: 2024 (1132) Transc riptio nist: DR.IND Santiago onic Signat ure Date/T ree: 2024 (1132) Printe d Date/T ree: 2024 (1140) BATCH NO: N/A PAGE 2 Signed Report CC'ed Logic: Orderi zakia Provid er: DUONGMELVIN VAUGHN LL Attend ing Provid er: JURGEN VAUGHN LL Referr ing Provid er: UJRGEN VAUGHN LL Consul ting Provid er: SAMUEL LOU [email or web address] [facility] [address], [place], [address], 05/11/2025 17:03:41 Result Notes None recorded. Problems Name Problem SNOMED Code Status Onset Date Resolution Date Notes Provider Name and Address Organization Details Recorded Time Essential hypertension 81297465 Active 2022 RICHIE KAUR NP, [facility],Julissa te [address] [place] [address], [address], [place] - [facility] - [place] & [place] 3 12:21:15 Coronary arterioscleros is 10973851 Active 2022 RICHIE KAUR NP, [facility],[address], [place], [address], [place] [facility] [place] & [place] 3 12:21:17 Mitral valve regurgitation 87842886 Active 2022 RICHIE KAUR NP, [facility],[address] [place], [address], [place] [facility] [place] & [place] 3 12:21:18 Tachycardia 6100080 Active 2022 RICHIE KAUR NP, [facility],[address], [place], [address], [place] [facility] [place] & [place] 3 12:21:19 Bradycardia 65009017 Active 2022 RICHIE KAUR NP, [facility],[address] [place], [address], [place] [facility] [place] & [place] 3 12:21:21 Diastolic dysfunction 3455400 Active 2022 Matias Sanchez MD [address] [place] [address],[address], [place], [address], [place] [facility] [place] & [place] 3 10:59:58 Dyspnea on exertion 79483807 Active 2023 Matias Sanchez MD [address] [place] [address],[address], [address], [place] [facility] - [place] & [place] 4 11:08:02 Chest pain 89794436 Active 2024 Matias Sanchez MD [address] [place] [address],[address], [address], [place] [facility] [place] & [place] 5 11:17:19 Bilateral carotid artery occlusion 504536414 Active 2024 Matias Sanchez MD [address] [place] [address],[address], [address], [place] [facility] [place] & [place] 5 11:36:46 Problem Notes None recorded. Procedures Surgical History Date Name Laterality Status Provider Name and Address Organization Details Recorded Time Back Surgery completed Tracie LOWE [facility] & [place] 04/05/2024 10:40:31 Partial hysterectomy completed Toshia Reynolds [facility] & [place] 05/28/2022 11:30:55 primary laminectomy excision of lumbar intervertebral disc completed Toshia Reynolds [facility] & [place] 05/28/2022 11:40:55 complete repair of rotator cuff completed Toshia Reynolds [facility] & [place] 05/28/2022 11:42:09 cholecystectomy completed Toshia Reynolds NT [facility] & [place] 05/28/2022 11:43:02 tonsillectomy completed Toshia Reynolds [facility] & [place] 05/28/2022 11:43:10 Imaging Results None recorded. Procedure [...] Available Not Available No t Available Vitals Date Recorded Body height Body mass index (BMI) Body weight Oxygen saturation Oxygen saturation in Arterial blood by Pulse oximetry Heart rate Systolic And Diastolic Provider Name and Address Organization Details Last Updated DateTime 5 170.18 cm 24.9 kg/m2 44220.9 1 g 99 % 99 % 77 /min 122/58 mm[Hg] Amira JOE [facility] 5 10:56:02 Date Recorded Body height Body mass index (BMI) Body weight Oxygen saturation Oxygen saturation in Arterial blood by Pulse oximetry Heart rate Systolic And Diastolic Provider Name and Address Organization Details Last Updated DateTime 5 170.18 cm 24.4 kg/m2 91754.9 7 g 97 % 97 % 63 /min 124/62 mm[Hg] Amira JOE [facility] & [place] 5 11:08:37 Date Recorded Body height Body mass index (BMI) Body weight Body temperature Provider Name and Address Organization Details Last Updated DateTime 02/28/2025 170.18 cm 24.4 kg/m2 51969.41 g 98.4 [degF] Gal Jose [facility] & [place] 02/28/2025 13:57:03 Date Recorded Body height Body mass index (BMI) Body weight Oxygen saturation Oxygen saturation in Arterial blood by Pulse oximetry Heart rate Respiratory rate Systolic And Diastolic Provider Name and Address Organization Details Last Updated DateTime 170.18 cm 24.3 kg/m2 53882.8 2 g 96 % 96 % 61 /min 16 /min 128/82 mm[Hg] Agueda Bradford [facility] & [place] 10:33:38 Social History Question Answer Notes LastModified by [employer] Details LastModified Time Tobacco Smoking Status Never Smoker Toshia Hui [facility] & [place] 05/28/2022 11:30:40 What Is Your Level Of Caffeine Consumption? Moderate Information not available 09/13/2023 What Type Of Diet Are You Following? REGULAR Information not available 09/13/2023 What Was The Date Of Your Most Recent Tobacco Screening? 1935 Information not available 04/05/2024 Are You Passively Exposed To Smoke? No Information not available 04/05/2024 Sex: Unknown Functional Status Question Answer Note LastModified by [employer] Details LastModified Time Do you use any illicit or recreational drugs? No [email or web address] Information not available 08/10/2022 Do you or have you ever used any other forms of tobacco or nicotine? No Information not available 09/13/2023 What is your level of alcohol consumption? None Information not available 08/10/2022 What is your exercise level? Moderate [email or web address] Information not available 03/01/2023 Mental Status None [...] Yelena Sal null, [place] [facility] [place] [facility] [place] 08/10/2022 11:21:35 Influenza, high-dose, quadrivalent, PF 1 completed [place] [facility] 08/10/2022 11:21:35 COVID-19, mRNA, LNP-S, PF, 100 mcg/0.5mL dose or 50 mcg/0.25mL dose 1 completed Yel[place] [facility] [place] 08/10/2022 11:21:35 COVID-19, mRNA, LNP-S, PF, 100 mcg/0.5mL dose or 50 mcg/0.25mL dose 1 completed Yel[place] [facility] [place] 08/10/2022 11:21:35 Tdap 2 completed [place] [facility] 08/10/2022 11:21:35 zoster recombinant 2 completed [place] [facility] 08/10/2022 11:21:35 zoster recombinant 2 completed [place] [facility] 08/10/2022 11:21:35 Pneumococcal conjugate PCV20, polysaccharide QNO920 conjugate, adjuvant, PF 2 completed [place] [facility] [place] 08/10/2022 11:21:35 Influenza, high-dose, quadrivalent, PF 2 completed Not Available [facility] 05/09/2025 13:37:44 COVID-19, mRNA, LNP-S, bivalent, PF, 50 mcg/0.5 mL or 25mcg/0.25 mL dose 3 completed Not Available [facility] 05/09/2025 13:37:44 Influenza, high-dose, quadrivalent, PF 3 completed Not Available [facility] 05/09/2025 13:37:44 Influenza, high-dose, trivalent, PF 4 completed Not Available [facility] 05/09/2025 13:37:44 Past Encounters Encounter ID Performer Location Encounter Start Date Encounter Closed Date Diagnosis/Indication Diagnosis SNOMED-CT Code Diagnosis ICD10 Code Diagnosis IMO Codes Diagnosis Note [id number] Onofre Bright MD [facility] [address] [place] [id number] 9 05/28/2022 10:59:00 05/28/2022 11:39:32 Pain of left hip joint 9754753266 29800 M25.552 [id number] Matias Sanchez MD [address] [place] [address] [place] [address] 6 08/10/2022 10:43:47 08/10/2022 11:40:24 Essential hypertension 14990754 I10 Coronary arteriosclerosis 03842527 I25.10 Mitral irish ve regurgitation 60493687 I34.0 Tachycardia 7206419 R00. 0 Bradycardia 83030887 R00 .1 [id number] Matias Sanchez MD [address] [place] [address] [place] [address] 6 03/01/2023 10:17:12 03/01/2023 10:55:34 Essential hypertension 86256571 I10 Bradycardia 56753326 R00 .1 Coronary arteriosclerosis 38817468 I25.10 Mitral irish ve regurgitation 24550641 I34.0 Diastolic dysfunction 35 54124 I51.9 [id number] Matias Sanchez MD [address] [place] [address] [place] [address] 6 09/13/2023 10:39:39 09/13/2023 11:09:02 Tachycardia 3048651 R00.0 Mitral irish ve regurgitation 55456390 I34.0 Coronary arteriosclerosis 16350705 I25.10 Diastolic dysfunction 35 20882 I51.9 Essential hypertension 19289666 I10 Dyspnea on exertion 6084 5006 R06.09 [id number] Onofre Bright MD [place] [phone] 9 12/30/2023 10:16:33 12/30/2023 11:04:45 Cervical spondylosis 782101837 M47.191 [id number] Matias Sanchez MD [address] [place] [address] [place] [address] 6 03/13/2024 10:10:31 03/13/2024 11:04:58 Tachycardia 9589701 R00.0 Mitral irish ve regurgitation 29209483 I34.0 Coronary arteriosclerosis 21700969 I25.10 Diastolic dysfunction 35 46474 I51.9 Essential hypertension 70644029 I10 [id number] [facility] [place] [address] 9 04/05/2024 10:21:43 04/05/2024 10:50:44 Bilateral trochanteric bursitis 2844876044 3989442 M70.61 M70.62 [id number] RICHIE KAUR NP, S [address] [place] [address] [place] [address] 6 07/17/2024 12:40:39 07/17/2024 13:32:02 Essential hypertension 33276579 I10 Angina pectoris 43945425 0 I20.9 Dyspnea on exertion 6084 5006 R06.09 Tachycardia 5562610 R00. 0 Mitral irish ve regurgitation 00702201 I34.0 Coronary arteriosclerosis 01727732 I25.10 Diastolic dysfunction 35 23082 I51.9 [id number] Axel Zuñiga MD [address] [place] [address] [place] [id number] 8 08/30/2024 13:09:54 08/30/2024 13:48:39 Dysphonia 75934159 R49.9 [id number] Matias Sanchez MD [address] [place] [address] [place] [id number] 6 09/13/2024 10:45:14 09/13/2024 11:06:26 Essential hypertension 08674567 I10 Mitral irish ve regurgitation 58640636 I34.0 Coronary arteriosclerosis 17131977 I25.10 Diastolic dysfunction 35 23149 I51.9 Preoperati ve cardiovascular examination 405243423 Z01.810 Chest pain 50036949 R07. 9 atypical [id number] Matias Sanchez MD [place] [address] [place] [address] 6 12/14/2024 10:37:27 12/14/2024 11:35:45 Essential hypertension 00150508 I10 Mitral irish ve regurgitation 17414030 I34.0 Coronary arteriosclerosis 75606758 I25.10 Diastolic dysfunction 35 53405 I51.9 Bilateral carotid artery occlusion 227121425 I65.23 [id number] Axel Zuñiga MD [address] [place] [address] 8 02/28/2025 13:32:55 02/28/2025 14:26:05 Otitis media 93058420 H65.91 [id number] Dizziness 612266137 R42 60013 [id number] RICHIE KAUR NP, S [address] [place] [address] 6 05/01/2025 09:32:07 05/01/2025 11:13:45 Essential hypertension 16404547 I10 Tachycardia 0338087 R00. 0 Mitral irish ve regurgitation 66629727 I34.0 Coronary arteriosclerosis 62429079 I25.10 Diastolic dysfunction 35 96367 I51.9 Bilateral carotid artery occlusion 167075249 I65.23 [id number] Angina pectoris 00120752 0 I20.9 [id number] Onofre Bright MD [facility] [address] [place] [address] 05/09/2025 13:36:08 05/09/2025 14:36:11 Arthritis of left sacroiliac joint 4123265702 362595 M46.5 7675906149 Health Concerns Section Related Observation LastModified by Organization Detai ls LastModified Time None Recorded Concern Status LastModified by Organization Details LastModified Time None Recorded Advance Directives Directive None Recorded Payers Insurance Date Sequence Insurance Name Policy Number Policy Mccabe Covered Member ID Mccabe Member ID Guarantor Name 12/11/2024 1 [employer] (MEDICARE REPLACEMENT/ ADVANTAGE - PPO) Cecilia Kyle [id number] Cecilia Kyle 05/09/2025 1 [place] Cecilia Kyle [id number] Cecilia Kyle 05/08/2025 2 DEVIN (MEDICARE SUPPLEMENT) Cecilia Kyle [id number] Cecilia Kyle 12/11/2024 1 [employer] Cecilia Kyle [id number] Cecilia Kyle 12/11/2024 [employer] (MEDICARE REPLACEMENT/ ADVANTAGE - PPO) Cecilia Kyle [id number] Cecilia Kyle Notes Date Note Type Note Provider Name and Address Organization Details Recorded Time 09/13/2024 text/html ROS as noted in the HPI patient's only complaint is that she gets an occasional aching in the chest. Occurs at rest. It is not exertional. No pressure tightness or heaviness. No nitroglycerin use. She is preop and having back procedure on 09/25/2024 where they are putting to spacers in her back. She has a lot of problems with arthritic and back pain. Hopefully this will help. She is here today to go over test results. Matias Sacnhez MD [address] [place] [address],[address], [place], [address], [facility][1] 09/13/2024 11:17:38 12/14/2024 text/html doing very well. No chest pain pressure or tightness. Minimal shortness of breath. Occasional dizziness. Has a history of vertigo. Overall she is done well. Went through back surgery without difficulty. Matias Sanchez MD [address] [place] [address],[address], [place], [address], [facility] & [place] 12/14/2024 11:37:01 02/28/2025 text/html Patient presents in follow-up. Patient had recent imaging study for evaluation of dizziness. Patient states revealed possible mastoid disease. Patient referred for further evaluation and management. Axel Zuñiga MD [address] [place] [address],[address], [place], [address], [facility] & [place] 02/28/2025 14:40:52 05/01/2025 text/html ROS as noted in the HPI Cecilia is an 89-year-old female who presents today in follow-up. The patient has a history significant for coronary artery disease, hypertension, tachycardia, diastolic dysfunction of the left ventricle, and mitral regurgitation. Since our last visit, the patient was seen in the emergency department, ruled out for acute coronary syndrome, after presenting with chest pain. The patient reports intermittent substernal chest pain and heaviness radiating to her shoulder blades. Intermittent exertional shortness of breath. More fatigue when exerting herself than previously noted. The patient has no other complaints or concerns. RICHIE KAUR NP, S [address] [place] [address],[address], [place], [address], [facility] & [place] 05/01/2025 12:54:16 05/09/2025 text/html Left SI joint painHas seen pain mgmt in past for SI joint injections- at least a year and a half agoTakes MeloxicamPelvis x-ray in office 05.09.25 Onofre Bright MD [address] [place] [address] Drive,[address], [place], [address], [facility] & [place] 05/09/2025 15:45:32 OBGyn Episode No OBEpisode recorded.
--- OUTSIDE RECORDS SUMMARY | 2025-05-16 12:08 | XMS_ITS | Clinical Summary ---
Author Organization [facility] Address [address] [place] [address] Care Team Providers Care Copy Lathe Tender Name Role Phone Felipe March MD Primary Care Provider [phone] Allergies No known active allergies Medications ascorbic acid (Vitamin C) 500 MG tablet 1 tablet (500 mg). Active biotin 5 MG capsule 1 capsule (5 mg). Active predniSONE (Deltasone) 2.5 MG tablet 2 tablets (5 mg). Active estradiol (Estrace) 1 MG tablet 3 Active diazePAM (Valium) 5 MG tablet Take 1 tablet by mouth 30 minutes prior to procedure. 1 tablet 3 Active Additional Information Patient not taking.Reported on 11/09/2024 predniSONE (Deltasone) 5 MG tablet 3 Active multivitamin-mi nerals-folic acid-coenzyme q10 (Preservision AREDS 2) capsule Take 1 capsule by mouth 1 (one) time each day. Active clobetasol (Temovate) 0.05 % external solution 4 Active Linzess 145 MCG capsule TAKE ONE (1) CAPSULE BY MOUTH EVERY OTHER DAY 4 Active predniSONE (Deltasone) 20 MG tablet 4 Active DULoxetine (Cymbalta) [address] capsule 4 Active metFORMIN (Glucophage) 500 MG tablet 5 Active meloxicam (Mobic) 7.5 MG tablet 5 Active Active Problems Problem Noted Date Diagnosed Date Pain of both sacroiliac joints 12/28/2022 Bilateral lower extremity pain 09/17/2022 Family History Medical History Relation Name Comments Cancer Brother Kristian Lu Relation Name Status Comments Brothcorry Lu Social History Tobacco Use Types Packs/Day Years Used Date Smoking Tobacco: Never Smokeless Tobacco: Never Tobacco Cessation:Counseling Given: Not Answered Alcohol Use Standard Drinks/Week Comments Never 0 (1 standard drink = 0.6 oz pur e alcohol) Comments No Sex and Gender Information Value Date Recorded Sex Assigned at Not on file Legal Sex Female 11:48 AM EST Gender Identity Not on file Sexual Orientation Not on file Last Filed Vital Signs Vital Sign Reading Time Taken Comments Blood Pressure 127/75 12/28/2024 10:37 AM EDT Pulse 72 12/28/2024 10:37 AM EDT Temperature 36.3 C (97.3 F) 12/28/2024 10:37 AM EDT Respiratory Rate 18 12/28/2024 10:37 AM EDT Oxygen Saturation 96% 12/28/2024 10:37 AM EDT Inhaled Oxygen Concentration - - Weight 69.4 kg (153 lb) 12/28/2024 10:37 AM EDT Height 170.2 cm (5' 7 ) 12/28/2024 10:37 AM EDT Body Mass Index 23.96 12/28/2024 10:37 AM EDT Plan of Treatment Health Maintenance Due Date Last Done Comments [facility]-Depression Screening 1935 [facility]-Medicare Annual Wellness (AWV) 1935 [facility]-Infant/Child/Adol SDOH Screenings 1935 [facility]- SDOH Screenings 1953 [facility]-Adult SDOH Screenings 1953 [facility]-RSV Vaccine: 60+ Years or (1 - 1-dose 75+ series) 2010 [facility]-Bone Density Scan 08/06/2024 08/06/2023 [id number] Vaccine ( season) 2025 07/30/2022, 05/23/2021, 10/12/2020, Additional history exists [facility]-Influenza Vaccine (#1) 03/26/202507/17, 05/12/2024, 05/13/2023, Additional history exists [facility]-DTaP,Tdap,and Td Vaccines (2 - Td or Tdap) 01/14/2032 01/13/2022 [facility]-Pneumococcal Vaccine: 50+ Years Completed 01/13/2022 [facility]-Zoster Vaccines Completed 04/13/2022, 2 HPV Vaccines Aged Out No longer eligi ble based on patient's age to complete this topic [facility]-HIB Vaccines Aged Out No longer e ligible based on patient's age to complete this topic [facility]-Hepatitis A Vaccines Aged Out No longer eligible based on patient's age to complete this topic [facility]-IPV Vaccines Aged Out No longer e ligible based on patient's age to complete this topic [facility]-Rotavirus Vaccines Aged Out No lo nger eligible based on patient's age to complete this topic Insurance [place] [id number] MEDICARE [employer] Care Teams Copy Lathe Tender Relationship Specialty Start Date End Date Felipe March MD [facility] [place] [place] [id number] PCP - General 10/16/22
--- OUTSIDE RECORDS SUMMARY | 2025-05-16 12:08 | XMS_ITS | Data Portability ---
Author Organization [facility] Address [address] [place] [address] Care Team Providers Care Substation Operator Helper Name Role Phone CHASE BAKER Primary Care Provider Assessment Encounter Date Assessment Date Assessment LastModified by Organization Details LastModified Time 01/15/2025 01/15/2025 Patient presente d to office today for their Medicare Annual Wellness Visit. Education was provided on healthy nutrition, including a diet rich in fruits and vegetables, minimizing simple carbohydrates, salt, and saturated fats. Encouraged regular cardiovascular exercise such as walking at least 30 minutes daily, 5 times per week. Emphasized preventive health measures and educated pt on fall prevention and community-based lifestyle interventions to help reduce health risks and promote healthy living. Medicare Preventive Services Check List reviewed and printed for patient. [email or web address] Not available 01/15/2025 07:58:00 Plan of Treatment Reminders Order Date Submit Date Provider Last Modified By Organization Details Last Modified Time Details Appointments Establish ed Patient 20 2024 09:00A Lauren Baker MD Not available Not available Not available Lab drug screen, urine 2024 025 [facility], [address] [place] [address], [place], [address], 01/29/2025 13:23:08 HbA1c (hemoglob in A1c), blood 2024 025 [facility], [address], [address] [address], [place], [address], 01/16/2025 08:24:19 CMP, serum or plasma 2024 025 [facility], [address], [place] [address], [place], [address], 01/16/2025 08:24:18 lipid panel, serum 2024 025 [facility], [address], [place] [address], [place], [address], 01/16/2025 08:24:19 microalbu min/creat inine, mass ratio, urine 2024 025 [facility], [address] [facility], [place], [address], 01/15/2025 10:04:22 CBC w/ auto diff 2024 025 [facility], [address], [place] [address], [place], [address], 01/16/2025 08:24:18 HbA1c (hemoglob in A1c), blood 2024 025 [facility], [facility], [place], [address], 10/17/2024 13:37:38 [email or web address] [address] [place] [address] [address], [place], [address], 12/05/2024 07:38:59 Procedures None recorded. Surgeries None recorded. Imaging MRI, brain, w/o contrast 2024 025 RIKA [facility] (Centralized Scheduling), [address] [place], [address], 02/05/2025 16:49:57 Medication Orders Valium 5 mg tablet 2024 025 [facility] [id number], [address] [place] [address] [place], [address], 02/06/2025 05:01:44 meloxicam 7.5 mg tablet 2024 025 [facility] [id number], [address] [facility] , [place], [address], 04/23/2025 11:20:23 estradiol 1 mg tablet 2024 025 [facility] [id number], [address] [facility] , [place], [address], 01/15/2025 09:43:04 metformin 500 mg tablet 2024 025 [facility] [id number], [address] [facility] , [place], [address], 08/07/2024 13:59:52 Patient TargetsNo targets recorded. Patient Instructions Encounter Date Encounter Id Patient Instructions Last Modified By Organization Details Last Modified Time 08/07/2024 [id number] Call with change s RTC or ED if symptoms change or worsen Keep next interval checkup Cont. chronic meds as prescribed Chronic conditions are stable Discussed natural and expected course of this diagnosis and need to alert me if symptoms do not follow expected course or if any worsens [email or web address] Not available 08/07/2024 13:55:01 08/14/2024 [id number] DISCUSSED NATURA L AND EXPECTED COURSE OF THIS DIAGNOSIS AND NEED TO ALERT ME IF SYMPTOMS DO NOT FOLLOW EXPECTED COURSE, OR IF ANY WORSEN. CALL W CHANGES RTC OR ED IF SYMPTOMS CHANGE OR WORSEN KEEP NEXT INTERVAL CHECKUP wdenham Not available 08/14/2024 09:37:57 cont regimen con t w specialists as scheduled wdenham Not available 08/14/2024 09:39:15 10/17/2024 [id number] Call with change s RTC or ED if symptoms change or worsen Keep next interval check-up Cont. chronic meds as prescribed Chronic conditions are stable Discussed natural and expected course of this diagnosis and need to alert me if symptoms do not follow expected course or if any worsens [email or web address] Not available 10/17/2024 13:18:50 01/15/2025 [id number] advance directiv es: care instructions wdenham Not available 01/15/2025 09:42:58 learning about depression wdenham Not available 01/15/2025 09:42:57 preventing falls : care instructions wdenham Not available 01/15/2025 09:42:58 medicare prevent maureen services guide wdenham Not available 01/15/2025 09:42:58 CALL WITH CHANGE S RTC OR GO TO ED IF SYMPTOMS CHANGE OR WORSEN DISCUSSED IMPORTANCE OF DIET AND EXERCISE ROUTINE HEALTH MAINTANENCE REVIEWED MEDS REVD WITH PATIENT TODAY, SIDE EFFECTS DISCUSSED AND PATIENT VOICES UNDERSTANDING OF THIS CHRONIC ISSUES ARE STABLE CONT REGIMEN DISCUSSED RECOMMENDATIONS FOR SCREENING C-SCOPE. DISCUSSED LIPIDS AND NEED TO FOLLOW. ADVISED PT TO CALL IF CHEST PAIN AT ANY TIME, SHORTNESS OF BREATH, BLACK OR DARK STOOLS OR ANY OTHER CHANGES IN BOWELS OR BLADDER. wdenham Not available 01/15/2025 07:33:33 cont regimen con t w specialists as scheduled wdenham Not available 01/15/2025 07:33:53 01/29/2025 [id number] CALL W CHANGES RTC OR ED IF SYMPTOMS CHANGE OR WORSEN KEEP NEXT INTERVAL CHECKUP CONT CHRONIC MEDS PERSCRIBED CHRONIC ISSUES ARE STABLE DISCUSSED NATURAL AND EXPECTED COURSE OF THIS DIAGNOSIS AND NEED TO ALERT ME IF SYMPTOMS DO NOT FOLLOW EXPECTED COURSE, OR IF ANY WORSEN OK TO TAKE PREDNISONE HALF TABLET EVERY DAY. [email or web address] Not available 01/29/2025 10:35:23 Reason for Referral Rn Trauma Referral fo r Chronic hoarseness Referring Physician: Chase Baker, Family Medicine, Encounter Date: 08/14/2024 Results Created Date Observation Date Name Description Value Unit Range Abnormal Flag Note LastModifiedBy Organization Detail LastModifiedTime 07/17/20 24 07/18/2024 CBC WITH DIFFE RENTI AL/PL ATELE T WBC 5.9 x10e3 /uL 3.4-10 .8 normal Not Available [facility] ([facility]) [address] [facility], [place], [address], 07/19/2024 08:10:51 07/17/20 24 07/18/2024 CBC WITH DIFFE RENTI AL/PL ATELE T RBC 4.18 x10e6 /uL 3.77-5 .28 normal Not Available [facility] ([facility]) [address] [facility], [place], [address], 07/19/2024 08:10:51 07/17/20 24 07/18/2024 CBC WITH DIFFE RENTI AL/PL ATELE T hemoglobin 12.7 g/dL 11.1-1 5.9 normal Not Available [facility] ([facility]) [address] [place], [address], 07/19/2024 08:10:51 07/17/20 24 07/18/2024 CBC WITH DIFFE RENTI AL/PL ATELE T hematocrit 39.0 % 34.0-4 6.6 normal Not Available [facility] ([facility]) [address] [facility], [place], [address], 07/19/2024 08:10:51 07/17/20 24 07/18/2024 CBC WITH DIFFE RENTI AL/PL ATELE T MCV 93 fL 79-97 normal Not Available [facility] ([facility]) [address] [place], [address], 07/19/2024 08:10:51 07/17/20 24 07/18/2024 CBC WITH DIFFE RENTI AL/PL ATELE T MCH 30.4 pg 26.6-3 3.0 normal Not Available [facility] ([facility]) [address] [place], [address], 07/19/2024 08:10:51 07/17/20 24 07/18/2024 CBC WITH DIFFE RENTI AL/PL ATELE T MCHC 32.6 g/dL 31.5-3 5.7 normal Not Available [facility] ([facility]) [address] [place], [address], 07/19/2024 08:10:51 07/17/20 24 07/18/2024 CBC WITH DIFFE RENTI AL/PL ATELE T RDW 13.6 % 11.7-1 5.4 Not Available [facility] ([facility]) [address] [facility], [place], [address], 07/19/2024 08:10:51 07/17/20 24 07/18/2024 CBC WITH DIFFE RENTI AL/PL ATELE T platelets 219 x10e3 /uL 150-45 0 normal Not Available [facility] ([facility]) [address] [facility], [place], [address], 07/19/2024 08:10:51 07/17/20 24 07/18/2024 CBC WITH DIFFE RENTI AL/PL ATELE T neutrophils 61 % not estab. normal Not Available [facility] ([facility]) [address] [facility], [place], [address], 07/19/2024 08:10:51 07/17/20 24 07/18/2024 CBC WITH DIFFE RENTI AL/PL ATELE T lymphs 28 % not estab. normal Not Available [facility] ([facility]) [address] [facility], [place], [address], 07/19/2024 08:10:51 07/17/20 24 07/18/2024 CBC WITH DIFFE RENTI AL/PL ATELE T monocytes 8 % not estab. normal Not Available [facility] ([facility]) [address] [facility], [place], [address], 07/19/2024 08:10:51 07/17/20 24 07/18/2024 CBC WITH DIFFE RENTI AL/PL ATELE T eos 2 % not estab. normal Not Available [facility] ([facility]) [address] [facility], [place], [address], 07/19/2024 08:10:51 07/17/20 24 07/18/2024 CBC WITH DIFFE RENTI AL/PL ATELE T basos 1 % not estab. normal Not Available [facility] ([facility]) [address] [facility], [place], [address], 07/19/2024 08:10:51 07/17/20 24 07/18/2024 CBC WITH DIFFE RENTI AL/PL ATELE T immature cells CLINICAL ANALYST Not Available [facility] ([facility]) [address] [place], [address], 07/19/2024 08:10:51 07/17/20 24 07/18/2024 CBC WITH DIFFE RENTI AL/PL ATELE T neutrophils (absolute) 3.7 x10e3 /uL 1.4-7. 0 normal Not Available [facility] ([facility]) [address] [place], [address], 07/19/2024 08:10:51 07/17/20 24 07/18/2024 CBC WITH DIFFE RENTI AL/PL ATELE T lymphs (absolute) 1.7 x10e3 /uL 0.7-3. 1 normal Not Available [facility] ([facility]) [address] [place], [address], 07/19/2024 08:10:51 07/17/20 24 07/18/2024 CBC WITH DIFFE RENTI AL/PL ATELE T monocytes(ab solute) 0.5 x10e3 /uL 0.1-0. 9 normal Not Available [facility] ([facility]) [address] [place], [address], 07/19/2024 08:10:51 07/17/20 24 07/18/2024 CBC WITH DIFFE RENTI AL/PL ATELE T eos (absolute) 0.1 x10e3 /uL 0.0-0. 4 normal Not Available [facility] ([facility]) [address] [place], [address], 07/19/2024 08:10:51 07/17/20 24 07/18/2024 CBC WITH DIFFE RENTI AL/PL ATELE T baso (absolute) 0.0 x10e3 /uL 0.0-0. 2 normal Not Available [facility] ([facility]) [address] [facility], [place], [address], 07/19/2024 08:10:51 07/17/20 24 07/18/2024 CBC WITH DIFFE RENTI AL/PL ATELE T immature granulocytes 0 % not estab. Not Available [facility] ([facility]) [address] [facility], [place], [address], 07/19/2024 08:10:51 07/17/20 24 07/18/2024 CBC WITH DIFFE RENTI AL/PL ATELE T immature grans (abs) 0.0 x10e3 /uL 0.0-0. 1 Not Available [facility] ([facility]) [address] [facility], [place], [address], 07/19/2024 08:10:51 07/17/20 24 07/18/2024 CBC WITH DIFFE RENTI AL/PL ATELE T NRBC CLINICAL ANALYST Not Available [facility] ([facility]) [address] [facility], [place], [address], 07/19/2024 08:10:51 07/17/20 24 07/18/2024 CBC WITH DIFFE RENTI AL/PL ATELE T hematology comments: CLINICAL ANALYST Not Available [facility] ([facility]) [address] [facility], [place], [address], 07/19/2024 08:10:51 07/17/20 24 07/18/2024 COMP. METAB OLIC PANEL (14) glucose 158 mg/dL 70-99 above high normal Not Available [facility] ([facility]) [address] [facility], [place], [address], 07/19/2024 08:10:51 07/17/20 24 07/18/2024 COMP. METAB OLIC PANEL (14) BUN 9 mg/dL 8-27 normal Not Available [facility] ([facility]) [address] [facility] [place], [address], 07/19/2024 08:10:51 07/17/20 24 07/18/2024 COMP. METAB OLIC PANEL (14) creatinine 0.71 mg/dL 0.57-1 .00 normal Not Available [facility] ([facility]) [address] [facility], [place], [address], 07/19/2024 08:10:51 07/17/20 24 07/18/2024 COMP. METAB OLIC PANEL (14) eGFR 81 mL/mi n/1.7 3 >59 normal Not Available [facility] ([facility]) [address] [facility], [place], [address], 07/19/2024 08:10:51 07/17/20 24 07/18/2024 COMP. METAB OLIC PANEL (14) BUN/creatini ne ratio 13 12-28 normal Not Available [facility] ([facility]) [address] [facility], [place], [address], 07/19/2024 08:10:51 07/17/20 24 07/18/2024 COMP. METAB OLIC PANEL (14) sodium 140 mmol/ L 134-14 4 normal Not Available [facility] ([facility]) [address] [facility] [place], [address], 07/19/2024 08:10:51 07/17/20 24 07/18/2024 COMP. METAB OLIC PANEL (14) potassium 4.5 mmol/ L 3.5-5. 2 normal Not Available [facility] ([facility]) [address] [facility] [place], [address], 07/19/2024 08:10:51 07/17/20 24 07/18/2024 COMP. METAB OLIC PANEL (14) chloride 103 mmol/ L 96-106 normal Not Available [facility] ([facility]) [address] [facility] [place], [address], 07/19/2024 08:10:51 07/17/20 24 07/18/2024 COMP. METAB OLIC PANEL (14) carbon dioxide, total 24 mmol/ L 20-29 normal Not Available [facility] ([facility]) [address] [facility] [place], [address], 07/19/2024 08:10:51 07/17/20 24 07/18/2024 COMP. METAB OLIC PANEL (14) calcium 9.3 mg/dL 8.7-10 .3 normal Not Available [facility] ([facility]) [address] [facility] [place], [address], 07/19/2024 08:10:51 07/17/20 24 07/18/2024 COMP. METAB OLIC PANEL (14) protein, total 5.8 g/dL 6.0-8. 5 below low normal Not Available [facility] ([facility]) [address] [facility] [place], [address], 07/19/2024 08:10:51 07/17/20 24 07/18/2024 COMP. METAB OLIC PANEL (14) albumin 3.9 g/dL 3.7-4. 7 normal Not Available [facility] ([facility]) [address] [facility] [place], [address], 07/19/2024 08:10:51 07/17/20 24 07/18/2024 COMP. METAB OLIC PANEL (14) globulin, total 1.9 g/dL 1.5-4. 5 Not Available [facility] ([facility]) [address] [place], [address], 07/19/2024 08:10:51 07/17/20 24 07/18/2024 COMP. METAB OLIC PANEL (14) bilirubin, total 0.4 mg/dL 0.0-1. 2 normal Not Available [facility] ([facility]) [address] [facility] [place], [address], 07/19/2024 08:10:51 07/17/20 24 07/18/2024 COMP. METAB OLIC PANEL (14) alkaline phosphatase 84 IU/L 44-121 normal Not Available [facility] ([facility]) [address], [place], [address], 07/19/2024 08:10:51 07/17/20 24 07/18/2024 COMP. METAB OLIC PANEL (14) AST (SGOT) 17 IU/L 0-40 normal Not Available [facility] ([facility]) [address] [facility] [place], [address], 07/19/2024 08:10:51 07/17/20 24 07/18/2024 COMP. METAB OLIC PANEL (14) ALT (SGPT) 15 IU/L 0-32 normal Not Available [facility] ([facility]) [address], [place], [address], 07/19/2024 08:10:51 07/17/20 24 07/18/2024 UA/M W/RFL X CULTU RE, COMP specific gravity 1.014 1.005- 1.030 normal Not Available [facility] ([facility]) [address] [facility] [place], [address], 07/19/2024 08:10:52 07/17/20 24 07/18/2024 UA/M W/RFL X CULTU RE, COMP pH 6.0 5.0-7. 5 normal Not Available [facility] ([facility]) [address] [facility] [place], [address], 07/19/2024 08:10:52 07/17/20 24 07/18/2024 UA/M W/RFL X CULTU RE, COMP urine-color Yellow yellow Not Available [facility] ([facility]) [address] [facility] [place], [address], 07/19/2024 08:10:52 07/17/20 24 07/18/2024 UA/M W/RFL X CULTU RE, COMP appearance Turbid clear abnormal Not Available [facility] ([facility]) [address] [facility], [place], [address], 07/19/2024 08:10:52 07/17/20 24 07/18/2024 UA/M W/RFL X CULTU RE, COMP WBC esterase Negati ve negati ve Not Available [facility] ([facility]) [address] [facility], [place], [address], 07/19/2024 08:10:52 07/17/20 24 07/18/2024 UA/M W/RFL X CULTU RE, COMP protein Trace negati ve/tra ce Not Available [facility] ([facility]) [address] [facility], [place], [address], 07/19/2024 08:10:52 07/17/20 24 07/18/2024 UA/M W/RFL X CULTU RE, COMP glucose Negati ve negati ve Not Available [facility] ([facility]) [address] [facility], [place], [address], 07/19/2024 08:10:52 07/17/20 24 07/18/2024 UA/M W/RFL X CULTU RE, COMP ketones Negati ve negati ve Not Available [facility] ([facility]) [address] [facility], [place], [address], 07/19/2024 08:10:52 07/17/20 24 07/18/2024 UA/M W/RFL X CULTU RE, COMP occult blood Negati ve negati ve Not Available [facility] ([facility]) [address] [facility], [place], [address], 07/19/2024 08:10:52 07/17/20 24 07/18/2024 UA/M W/RFL X CULTU RE, COMP bilirubin Negati ve negati ve Not Available [facility] ([facility]) [address] [facility], [place], [address], 07/19/2024 08:10:52 07/17/20 24 07/18/2024 UA/M W/RFL X CULTU RE, COMP urobilinogen ,semi-qn 0.2 mg/dL 0.2-1. 0 normal Not Available [facility] ([facility]) [address] [facility], [place], [address], 07/19/2024 08:10:52 07/17/20 24 07/18/2024 UA/M W/RFL X CULTU RE, COMP nitrite, urine Negati ve negati ve Not Available [facility] ([facility]) [address] [facility], [place], [address], 07/19/2024 08:10:52 07/17/20 24 07/18/2024 UA/M W/RFL X CULTU RE, COMP microscopic examination Commen t Micro scopi c follo ws if indic ated. Not Available [facility] ([facility]) [address] [facility], [place], [address], 07/19/2024 08:10:52 07/17/20 24 07/18/2024 UA/M W/RFL X CULTU RE, COMP microscopic examination See below: Micro scopi c was indic ated and was perfo rmed. Not Available [facility] ([facility]) [address] [facility], [place], [address], 07/19/2024 08:10:52 07/17/20 24 07/18/2024 UA/M W/RFL X CULTU RE, COMP WBC 0-5 /hpf 0 - 5 Not Available [facility] ([facility]) [address] [facility], [place], [address], 07/19/2024 08:10:52 07/17/20 24 07/18/2024 UA/M W/RFL X CULTU RE, COMP RBC None seen /hpf 0 - 2 Not Available [facility] ([facility]) [address] [facility], [place], [address], 07/19/2024 08:10:52 07/17/20 24 07/18/2024 UA/M W/RFL X CULTU RE, COMP epithelial cells (non renal) >10 /hpf 0 - 10 abnormal Not Available [facility] ([facility]) [address] [place], [address], 07/19/2024 08:10:52 07/17/20 24 07/18/2024 UA/M W/RFL X CULTU RE, COMP epithelial cells (renal) CLINICAL ANALYST Not Available [facility] ([facility]) [address] [place], [address], 07/19/2024 08:10:52 07/17/20 24 07/18/2024 UA/M W/RFL X CULTU RE, COMP casts Presen t /lpf none seen abnormal Not Available [facility] ([facility]) [address] [facility], [place], [address], 07/19/2024 08:10:52 07/17/20 24 07/18/2024 UA/M W/RFL X CULTU RE, COMP cast type Hyalin e casts n/a Not Available [facility] ([facility]) [address] [place], [address], 07/19/2024 08:10:52 07/17/20 24 07/18/2024 UA/M W/RFL X CULTU RE, COMP crystals CLINICAL ANALYST Not Available [facility] ([facility]) [address] [place], [address], 07/19/2024 08:10:52 07/17/20 24 07/18/2024 UA/M W/RFL X CULTU RE, COMP crystal type CLINICAL ANALYST Not Available [facility] ([facility]) [address] [place], [address], 07/19/2024 08:10:52 07/17/20 24 07/18/2024 UA/M W/RFL X CULTU RE, COMP mucus threads CLINICAL ANALYST Not Available [facility] ([facility]) [address] [place], [address], 07/19/2024 08:10:52 07/17/20 24 07/18/2024 UA/M W/RFL X CULTU RE, COMP bacteria Modera te none seen/f ew abnormal Not Available [facility] ([facility]) [address] [facility], [place], [address], 07/19/2024 08:10:52 07/17/20 24 07/18/2024 UA/M W/RFL X CULTU RE, COMP yeast Presen t none seen abnormal Not Available [facility] ([facility]) [address] [place], [address], 07/19/2024 08:10:52 07/17/20 24 07/18/2024 UA/M W/RFL X CULTU RE, COMP trichomonas CLINICAL ANALYST Not Available [facility] ([facility]) [address] [place], [address], 07/19/2024 08:10:52 07/17/20 24 07/18/2024 UA/M W/RFL X CULTU RE, COMP comment CLINICAL ANALYST Not Available [facility] ([facility]) [address] [place], [address], 07/19/2024 08:10:52 07/17/20 24 07/18/2024 UA/M W/RFL X CULTU RE, COMP urinalysis reflex Commen t This speci men has refle xed to a Urine Cultu re. Not Available [facility] ([facility]) [address] [place], [address], 07/19/2024 08:10:52 07/17/20 24 07/19/2024 UA/M W/RFL X CULTU RE, COMP urine culture,comp rehensive Final report Not Available [facility] ([facility]) [address] [place], [address], 07/19/2024 08:10:52 07/17/20 24 07/19/2024 UA/M W/RFL X CULTU RE, COMP result 1 COMMEN T Mixed uroge nital mildred 800 Colon ies/m L Not Available [facility] ([facility]) [address] [place], [address], 07/19/2024 08:10:52 07/17/20 24 07/18/2024 LIPID PANEL cholesterol, total 183 mg/dL 100-19 9 normal Not Available [facility] ([facility]) [address] [place], [address], 07/19/2024 08:10:52 07/17/20 24 07/18/2024 LIPID PANEL triglyceride s 118 mg/dL 0-149 normal Not Available [facility] ([facility]) [address] [place], [address], 07/19/2024 08:10:52 07/17/20 24 07/18/2024 LIPID PANEL HDL cholesterol 63 mg/dL >39 normal Not Available [facility] ([facility]) [address] [place], [address], 07/19/2024 08:10:52 07/17/20 24 07/18/2024 LIPID PANEL VLDL cholesterol kaylee 21 mg/dL 5-40 Not Available [facility] ([facility]) [address] [place], [address], 07/19/2024 08:10:52 07/17/20 24 07/18/2024 LIPID PANEL LDL chol calc ([facility]) 99 mg/dL 0-99 Not Available [facility] ([facility]) [address] [place], [address], 07/19/2024 08:10:52 07/17/20 24 07/18/2024 LIPID PANEL LDL calc comment: CLINICAL ANALYST Not Available [facility] ([facility]) [address] [facility], [place], [address], 07/19/2024 08:10:52 07/17/20 24 07/18/2024 HEMOG LOBIN A1C hemoglobin A1C 8.5 % 4.8-5. 6 above high normal Predi abete s: 5.7 - 6.4 Diabe ambrosio: >6.4 Glyce rylan contr ol for adult s with diabe ambrosio: <7.0 Not Available [facility] ([facility]) [address] [place], [address], 07/19/2024 08:10:53 07/17/20 24 07/18/2024 PHOSP HORUS phosphorus 2.8 mg/dL 3.0-4. 3 below low normal Not Available [facility] ([facility]) [address] [place], [address], 07/19/2024 08:10:53 07/17/20 24 07/18/2024 MAGNE SIUM magnesium 1.9 mg/dL 1.6-2. 3 normal Not Available [facility] ([facility]) [address] [place], [address], 07/19/2024 08:10:53 07/17/20 24 07/17/2024 micro album in/cr eatin ine, mass ratio , urine Microalbumin 150 Not Available Ana [facility] [address], [address], 07/17/2024 07:56:59 07/17/20 24 07/17/2024 micro album in/cr eatin ine, mass ratio , urine Creatinine 200 Not Available [facility] [address], [address], 07/17/2024 07:56:59 07/17/20 24 07/17/2024 micro album in/cr eatin ine, mass ratio , urine Ratio 30-300 Not Available [address], [place], [address], 07/17/2024 07:56:59 07/24/20 24 07/25/2024 UA/M W/RFL X CULTU RE, COMP specific gravity 1.013 1.005- 1.030 normal Not Available [facility] ([facility]) [address] [facility] [facility] [address], [place], [address], 07/25/2024 08:19:40 07/24/20 24 07/25/2024 UA/M W/RFL X CULTU RE, COMP pH 6.5 5.0-7. 5 normal Not Available [facility] ([facility]) [address] [facility] [place], [place], [address], 07/25/2024 08:19:40 07/24/20 24 07/25/2024 UA/M W/RFL X CULTU RE, COMP urine-color Yellow yellow Not Available [facility] ([facility]) [address] [facility] [place], [place], [address], 07/25/2024 08:19:40 07/24/20 24 07/25/2024 UA/M W/RFL X CULTU RE, COMP appearance Clear clear Not Available [facility] ([facility]) [address] [facility] [place], [place], [address], 07/25/2024 08:19:40 07/24/20 24 07/25/2024 UA/M W/RFL X CULTU RE, COMP WBC esterase Negati ve negati ve Not Available [facility] ([facility]) [address] [facility] [place], [place], [address], 07/25/2024 08:19:40 07/24/20 24 07/25/2024 UA/M W/RFL X CULTU RE, COMP protein Negati ve negati ve/tra ce Not Available [facility] ([facility]) [address] [facility] [place], [place], [address], 07/25/2024 08:19:40 07/24/20 24 07/25/2024 UA/M W/RFL X CULTU RE, COMP glucose Negati ve negati ve Not Available [facility] ([facility]) [address] [facility] [place], [place], [address], 07/25/2024 08:19:40 07/24/20 24 07/25/2024 UA/M W/RFL X CULTU RE, COMP ketones Negati ve negati ve Not Available [facility] ([facility]) [address] [facility] [place], [place], [address], 07/25/2024 08:19:40 07/24/20 24 07/25/2024 UA/M W/RFL X CULTU RE, COMP occult blood Negati ve negati ve Not Available [facility] ([facility]) [address] [facility] [place], [place], [address], 07/25/2024 08:19:40 07/24/20 24 07/25/2024 UA/M W/RFL X CULTU RE, COMP bilirubin Negati ve negati ve Not Available [facility] ([facility]) [address] [facility] [place], [place], [address], 07/25/2024 08:19:40 07/24/20 24 07/25/2024 UA/M W/RFL X CULTU RE, COMP urobilinogen ,semi-qn 0.2 mg/dL 0.2-1. 0 normal Not Available [facility] ([facility]) [address] [facility] [place], [place], [address], 07/25/2024 08:19:40 07/24/20 24 07/25/2024 UA/M W/RFL X CULTU RE, COMP nitrite, urine Negati ve negati ve Not Available [facility] ([facility]) [address] [facility] [place], [place], [address], 07/25/2024 08:19:40 07/24/20 24 07/25/2024 UA/M W/RFL X CULTU RE, COMP microscopic examination Commen t Micro scopi c follo ws if indic ated. Not Available [facility] ([facility]) [address] [facility] [place], [place], [address], 07/25/2024 08:19:40 07/24/20 24 07/25/2024 UA/M W/RFL X CULTU RE, COMP microscopic examination See below: Micro scopi c was indic ated and was perfo rmed. Not Available [facility] ([facility]) [address] [facility] [place], [place], [address], 07/25/2024 08:19:40 07/24/20 24 07/25/2024 UA/M W/RFL X CULTU RE, COMP WBC None seen /hpf 0 - 5 Not Available [facility] ([facility]) [address] [facility] [place], [place], [address], 07/25/2024 08:19:40 07/24/20 24 07/25/2024 UA/M W/RFL X CULTU RE, COMP RBC 0-2 /hpf 0 - 2 Not Available [facility] ([facility]) [address] [facility] [place], [place], [address], 07/25/2024 08:19:40 07/24/20 24 07/25/2024 UA/M W/RFL X CULTU RE, COMP epithelial cells (non renal) 0-10 /hpf 0 - 10 Not Available [facility] ([facility]) [address] [facility] [place], [place], [address], 07/25/2024 08:19:40 07/24/20 24 07/25/2024 UA/M W/RFL X CULTU RE, COMP epithelial cells (renal) CLINICAL ANALYST Not Available [facility] ([facility]) [address] [facility] [place], [place], [address], 07/25/2024 08:19:40 07/24/20 24 07/25/2024 UA/M W/RFL X CULTU RE, COMP casts None seen /lpf none seen Not Available [facility] ([facility]) [address], [place], [address], 07/25/2024 08:19:40 07/24/20 24 07/25/2024 UA/M W/RFL X CULTU RE, COMP cast type CLINICAL ANALYST Not Available [facility] ([facility]) [address], [place], [address], 07/25/2024 08:19:40 07/24/20 24 07/25/2024 UA/M W/RFL X CULTU RE, COMP crystals CLINICAL ANALYST Not Available [facility] ([facility]) [address], [place], [address], 07/25/2024 08:19:40 07/24/20 24 07/25/2024 UA/M W/RFL X CULTU RE, COMP crystal type CLINICAL ANALYST Not Available [facility] ([facility]) [address], [place], [address], 07/25/2024 08:19:40 07/24/20 24 07/25/2024 UA/M W/RFL X CULTU RE, COMP mucus threads CLINICAL ANALYST Not Available [facility] ([facility]) [address], [place], [address], 07/25/2024 08:19:40 07/24/20 24 07/25/2024 UA/M W/RFL X CULTU RE, COMP bacteria None seen none seen/f ew Not Available [facility] ([facility]) [address], [place], [address], 07/25/2024 08:19:40 07/24/20 24 07/25/2024 UA/M W/RFL X CULTU RE, COMP yeast CLINICAL ANALYST Not Available [facility] ([facility]) [address] [facility] [place], [place], [address], 07/25/2024 08:19:40 07/24/20 24 07/25/2024 UA/M W/RFL X CULTU RE, COMP trichomonas CLINICAL ANALYST Not Available [facility] ([facility]) [address] [facility] [place], [place], [address], 07/25/2024 08:19:40 07/24/20 24 07/25/2024 UA/M W/RFL X CULTU RE, COMP comment CLINICAL ANALYST Not Available [facility] ([facility]) [address] [facility] [place], [place], [address], 07/25/2024 08:19:40 07/24/20 24 07/25/2024 UA/M W/RFL X CULTU RE, COMP urinalysis reflex Commen t This speci men will not refle x to a Urine Cultu re. Not Available [facility] ([facility]) [address] [facility] [place], [place], [address], 07/25/2024 08:19:40 07/24/20 24 07/25/2024 TSH+F REE T4 TSH 2.840 uIU/m L 0.450- 4.500 normal Not Available [facility] ([facility]) [address] [place], [address], 07/25/2024 10:11:36 07/24/20 24 07/25/2024 TSH+F REE T4 T4,free(dire ct) 1.10 NG/dL 0.82-1 .77 normal Not Available [facility] ([facility]) [address] [place], [address], 07/25/2024 10:11:36 07/24/20 24 07/25/2024 COMP. METAB OLIC PANEL (14) glucose 168 mg/dL 70-99 above high normal Not Available [facility] ([facility]) [address] [place], [address], 07/25/2024 10:11:36 07/24/20 24 07/25/2024 COMP. METAB OLIC PANEL (14) BUN 16 mg/dL 8-27 normal Not Available [facility] ([facility]) [address] [facility] [place], [address], 07/25/2024 10:11:36 07/24/20 24 07/25/2024 COMP. METAB OLIC PANEL (14) creatinine 0.94 mg/dL 0.57-1 .00 normal Not Available [facility] ([facility]) [address] [facility] [place], [place], [address], 07/25/2024 10:11:36 07/24/20 24 07/25/2024 COMP. METAB OLIC PANEL (14) eGFR 58 mL/mi n/1.7 3 >59 below low normal Not Available [facility] ([facility]) [address] [facility] [place], [place], [address], 07/25/2024 10:11:36 07/24/20 24 07/25/2024 COMP. METAB OLIC PANEL (14) BUN/creatini ne ratio 17 12-28 normal Not Available [facility] ([facility]) [address] [facility] [place], [address], 07/25/2024 10:11:36 07/24/20 24 07/25/2024 COMP. METAB OLIC PANEL (14) sodium 138 mmol/ L 134-14 4 normal Not Available [facility] ([facility]) [address] [facility] [place], [address], 07/25/2024 10:11:36 07/24/20 24 07/25/2024 COMP. METAB OLIC PANEL (14) potassium 4.1 mmol/ L 3.5-5. 2 normal Not Available [facility] ([facility]) [address] [facility] [place], [place], [address], 07/25/2024 10:11:36 07/24/20 24 07/25/2024 COMP. METAB OLIC PANEL (14) chloride 101 mmol/ L 96-106 normal Not Available [facility] ([facility]) [address], [place], [address], 07/25/2024 10:11:36 07/24/20 24 07/25/2024 COMP. METAB OLIC PANEL (14) carbon dioxide, total 25 mmol/ L 20-29 normal Not Available [facility] ([facility]) [address], [place], [address], 07/25/2024 10:11:36 07/24/20 24 07/25/2024 COMP. METAB OLIC PANEL (14) calcium 9.3 mg/dL 8.7-10 .3 normal Not Available [facility] ([facility]) [address], [place], [address], 07/25/2024 10:11:36 07/24/20 24 07/25/2024 COMP. METAB OLIC PANEL (14) protein, total 6.0 g/dL 6.0-8. 5 normal Not Available [facility] ([facility]) [address] [place], [address], 07/25/2024 10:11:36 07/24/20 24 07/25/2024 COMP. METAB OLIC PANEL (14) albumin 4.0 g/dL 3.7-4. 7 normal Not Available [facility] ([facility]) [address] [place], [address], 07/25/2024 10:11:36 07/24/20 24 07/25/2024 COMP. METAB OLIC PANEL (14) globulin, total 2.0 g/dL 1.5-4. 5 Not Available [facility] ([facility]) [address] [place], [address], 07/25/2024 10:11:36 07/24/20 24 07/25/2024 COMP. METAB OLIC PANEL (14) bilirubin, total 0.3 mg/dL 0.0-1. 2 normal Not Available [facility] ([facility]) [address] [place], [address], 07/25/2024 10:11:36 07/24/20 24 07/25/2024 COMP. METAB OLIC PANEL (14) alkaline phosphatase 81 IU/L 44-121 normal Not Available [facility] ([facility]) [address] [facility] [place], [address], 07/25/2024 10:11:36 07/24/20 24 07/25/2024 COMP. METAB OLIC PANEL (14) AST (SGOT) 15 IU/L 0-40 normal Not Available [facility] ([facility]) [address] [facility] [place], [address], 07/25/2024 10:11:36 07/24/20 24 07/25/2024 COMP. METAB OLIC PANEL (14) ALT (SGPT) 14 IU/L 0-32 normal Not Available [facility] ([facility]) [address] [facility] [place], [place], [address], 07/25/2024 10:11:36 07/24/20 24 07/25/2024 IRON AND TIBC iron bind.cap.(TI BC) 242 ug/dL 250-45 0 below low normal Not Available [facility] ([facility]) [address] [facility] [place], [address], 07/25/2024 10:11:37 07/24/20 24 07/25/2024 IRON AND TIBC UIBC 167 ug/dL 118-36 9 normal Not Available [facility] ([facility]) [address] [facility] [place], [address], 07/25/2024 10:11:37 07/24/20 24 07/25/2024 IRON AND TIBC iron 75 ug/dL 27-139 normal Not Available [facility] ([facility]) [address] [facility] [place], [address], 07/25/2024 10:11:37 07/24/20 24 07/25/2024 IRON AND TIBC iron saturation 31 % 15-55 normal Not Available [facility] ([facility]) [address] [facility] [place], [place], [address], 07/25/2024 10:11:37 07/24/20 24 07/25/2024 VITAM IN B12 AND FOLAT E vitamin B12 392 pg/mL 232-12 45 normal Not Available [facility] ([facility]) [address] [facility] [place], [place], [address], 07/25/2024 10:11:37 07/24/20 24 07/25/2024 VITAM IN B12 AND FOLAT E folate (folic acid), serum 8.8 NG/mL >3.0 normal A serum folat e sophie ntrat ion of less than 3.1 ng/mL is consi dered to repre sent clini kaylee defic iency . Not Available [facility] ([facility]) [address] [facility] [place], [place], [address], 07/25/2024 10:11:37 07/24/20 24 07/25/2024 VITAM IN D, 25-HY DROXY vitamin D, 25-hydroxy 44.2 NG/mL 30.0-1 00.0 Vitam in D defic iency has been defin ed by the Insti tute of Medic ine and an Endoc rine Socie ty pract ice guide line as a level of serum 25-OH vitam in D less than 20 ng/mL (1,2) . The Endoc rine Socie ty went on to furth er defin e vitam in D insuf ficie ncy as a level betwe en 21 and 29 ng/mL (2). 1. IOM (Inst itute of Medic ine). 2009. Dieta ry refer ence intak es for calci um and D. Freddy lee [place]: The Natio nal [facility] . 2. Maggie baig MF, [place], [place] off-F errar i MACHADO, et al. Evalu ation , treat ment, and preve ntion of vitam in D defic iency : an Endoc rine Socie ty clini kaylee pract ice guide line. EM. 2010; 96(7) :1911 -30. Not Available [facility] ([facility]) [address] [facility] [place], [place], [address], 07/25/2024 10:11:38 07/24/20 24 07/24/2024 gluco se, finge rstic k, blood Blood Glucose: mg/dl 188 Not Available [facility] [address], [address], 07/24/2024 13:58:10 07/24/20 24 07/24/2024 gluco se, finge rstic k, blood Reference Range (60-100) abnorm al Not Available [address], [place], [address], 07/24/2024 13:58:10 10/18/19 25 10/17/2024 HbA1c (hemo globi n A1c), blood HbA1C 7.4 % Not Available [address], [place], [address], 10/17/2024 13:15:50 01/16/20 25 01/16/2025 CBC WITH DIFFE RENTI AL/PL ATELE T WBC 6.4 x10e3 /uL 3.4-10 .8 normal Not Available [facility] ([facility]) [address] [facility] [place], [place], [address], 01/16/2025 08:24:18 01/16/20 25 01/16/2025 CBC WITH DIFFE RENTI AL/PL ATELE T RBC 4.01 x10e6 /uL 3.77-5 .28 normal Not Available [facility] ([facility]) [address] [facility] [place], [place], [address], 01/16/2025 08:24:18 01/16/20 25 01/16/2025 CBC WITH DIFFE RENTI AL/PL ATELE T hemoglobin 12.1 g/dL 11.1-1 5.9 normal Not Available [facility] ([facility]) [address] [place], [address], 01/16/2025 08:24:18 01/16/20 25 01/16/2025 CBC WITH DIFFE RENTI AL/PL ATELE T hematocrit 38.7 % 34.0-4 6.6 normal Not Available [facility] ([facility]) [address] [place], [address], 01/16/2025 08:24:18 01/16/2001/16/2025 CBC WITH DIFFE RENTI AL/PL ATELE T MCV 97 fL 79-97 normal Not Available [facility] ([facility]) [address] [place], [address], 01/16/2025 08:24:18 01/16/20 25 01/16/2025 CBC WITH DIFFE RENTI AL/PL ATELE T MCH 30.2 pg 26.6-3 3.0 normal Not Available [facility] ([facility]) [address] [place], [address], 01/16/2025 08:24:18 01/16/2001/16/2025 CBC WITH DIFFE RENTI AL/PL ATELE T MCHC 31.3 g/dL 31.5-3 5.7 below low normal Not Available [facility] ([facility]) [address] [place], [address], 01/16/2025 08:24:18 01/16/2001/16/2025 CBC WITH DIFFE RENTI AL/PL ATELE T RDW 13.1 % 11.7-1 5.4 Not Available [facility] ([facility]) [address] [place], [address], 01/16/2025 08:24:18 01/16/20 25 01/16/2025 CBC WITH DIFFE RENTI AL/PL ATELE T platelets 183 x10e3 /uL 150-45 0 normal Not Available [facility] ([facility]) [address] [place], [address], 01/16/2025 08:24:18 01/16/20 25 01/16/2025 CBC WITH DIFFE RENTI AL/PL ATELE T neutrophils 71 % not estab. normal Not Available [facility] ([facility]) [address] [facility] [place], [place], [address], 01/16/2025 08:24:18 01/16/20 25 01/16/2025 CBC WITH DIFFE RENTI AL/PL ATELE T lymphs 20 % not estab. normal Not Available [facility] ([facility]) [address] [place], [address], 01/16/2025 08:24:18 01/16/20 25 01/16/2025 CBC WITH DIFFE RENTI AL/PL ATELE T monocytes 8 % not estab. normal Not Available [facility] ([facility]) [address] [place], [address], 01/16/2025 08:24:18 01/16/20 25 01/16/2025 CBC WITH DIFFE RENTI AL/PL ATELE T eos 1 % not estab. normal Not Available [facility] ([facility]) [address] [facility], [place], [address], 01/16/2025 08:24:18 01/16/20 25 01/16/2025 CBC WITH DIFFE RENTI AL/PL ATELE T basos 0 % not estab. normal Not Available [facility] ([facility]) [address] [place], [address], 01/16/2025 08:24:18 01/16/20 25 01/16/2025 CBC WITH DIFFE RENTI AL/PL ATELE T immature cells CLINICAL ANALYST Not Available [facility] ([facility]) [address] [facility] [place], [place], [address], 01/16/2025 08:24:18 01/16/20 25 01/16/2025 CBC WITH DIFFE RENTI AL/PL ATELE T neutrophils (absolute) 4.5 x10e3 /uL 1.4-7. 0 normal Not Available [facility] ([facility]) [address] [place], [address], 01/16/2025 08:24:18 01/16/20 25 01/16/2025 CBC WITH DIFFE RENTI AL/PL ATELE T lymphs (absolute) 1.3 x10e3 /uL 0.7-3. 1 normal Not Available [facility] ([facility]) [address] [facility] [place], [place], [address], 01/16/2025 08:24:18 01/16/20 25 01/16/2025 CBC WITH DIFFE RENTI AL/PL ATELE T monocytes(ab solute) 0.5 x10e3 /uL 0.1-0. 9 normal Not Available [facility] ([facility]) [address] [place], [address], 01/16/2025 08:24:18 01/16/20 25 01/16/2025 CBC WITH DIFFE RENTI AL/PL ATELE T eos (absolute) 0.1 x10e3 /uL 0.0-0. 4 normal Not Available [facility] ([facility]) [address] [place], [address], 01/16/2025 08:24:18 01/16/20 25 01/16/2025 CBC WITH DIFFE RENTI AL/PL ATELE T baso (absolute) 0.0 x10e3 /uL 0.0-0. 2 normal Not Available [facility] ([facility]) [address] [place], [address], 01/16/2025 08:24:18 01/16/20 25 01/16/2025 CBC WITH DIFFE RENTI AL/PL ATELE T immature granulocytes 0 % not estab. Not Available [facility] ([facility]) [address] [facility], [place], [address], 01/16/2025 08:24:18 01/16/20 25 01/16/2025 CBC WITH DIFFE RENTI AL/PL ATELE T immature grans (abs) 0.0 x10e3 /uL 0.0-0. 1 Not Available [facility] ([facility]) [address] [facility], [place], [address], 01/16/2025 08:24:18 01/16/20 25 01/16/2025 CBC WITH DIFFE RENTI AL/PL ATELE T NRBC CLINICAL ANALYST Not Available [facility] ([facility]) [address] [facility], [place], [address], 01/16/2025 08:24:18 01/16/20 25 01/16/2025 CBC WITH DIFFE RENTI AL/PL ATELE T hematology comments: CLINICAL ANALYST Not Available [facility] ([facility]) [address] [facility], [place], [address], 01/16/2025 08:24:18 01/16/20 25 01/16/2025 COMP. METAB OLIC PANEL (14) glucose 170 mg/dL 70-99 above high normal Not Available [facility] ([facility]) [address] [facility], [place], [address], 01/16/2025 08:24:18 01/16/20 25 01/16/2025 COMP. METAB OLIC PANEL (14) BUN 15 mg/dL 8-27 normal Not Available [facility] ([facility]) [address] [facility], [place], [address], 01/16/2025 08:24:18 01/16/20 25 01/16/2025 COMP. METAB OLIC PANEL (14) creatinine 0.68 mg/dL 0.57-1 .00 normal Not Available [facility] ([facility]) [address], [place], [address], 01/16/2025 08:24:18 01/16/20 25 01/16/2025 COMP. METAB OLIC PANEL (14) eGFR 83 mL/mi n/1.7 3 >59 normal Not Available [facility] ([facility]) [address], [place], [address], 01/16/2025 08:24:18 01/16/20 25 01/16/2025 COMP. METAB OLIC PANEL (14) BUN/creatini ne ratio 22 12-28 normal Not Available [facility] ([facility]) [address] [facility], [place], [address], 01/16/2025 08:24:18 01/16/20 25 01/16/2025 COMP. METAB OLIC PANEL (14) sodium 139 mmol/ L 134-14 4 normal Not Available [facility] ([facility]) [address] [facility], [place], [address], 01/16/2025 08:24:18 01/16/20 25 01/16/2025 COMP. METAB OLIC PANEL (14) potassium 4.1 mmol/ L 3.5-5. 2 normal Not Available [facility] ([facility]) [address] [facility], [place], [address], 01/16/2025 08:24:18 01/16/20 25 01/16/2025 COMP. METAB OLIC PANEL (14) chloride 101 mmol/ L 96-106 normal Not Available [facility] ([facility]) [address] [facility] [place], [address], 01/16/2025 08:24:18 01/16/20 25 01/16/2025 COMP. METAB OLIC PANEL (14) carbon dioxide, total 23 mmol/ L 20-29 normal Not Available [facility] ([facility]) [address] [facility] [place], [address], 01/16/2025 08:24:18 01/16/20 25 01/16/2025 COMP. METAB OLIC PANEL (14) calcium 9.4 mg/dL 8.7-10 .3 normal Not Available [facility] ([facility]) [address] [place], [address], 01/16/2025 08:24:18 01/16/20 25 01/16/2025 COMP. METAB OLIC PANEL (14) protein, total 5.6 g/dL 6.0-8. 5 below low normal Not Available [facility] ([facility]) [address] [place], [address], 01/16/2025 08:24:18 01/16/20 25 01/16/2025 COMP. METAB OLIC PANEL (14) albumin 3.8 g/dL 3.7-4. 7 normal Not Available [facility] ([facility]) [address] [place], [address], 01/16/2025 08:24:18 01/16/20 25 01/16/2025 COMP. METAB OLIC PANEL (14) globulin, total 1.8 g/dL 1.5-4. 5 Not Available [facility] ([facility]) [address] [place], [address], 01/16/2025 08:24:18 01/16/20 25 01/16/2025 COMP. METAB OLIC PANEL (14) bilirubin, total 0.3 mg/dL 0.0-1. 2 normal Not Available [facility] ([facility]) [address] [place], [address], 01/16/2025 08:24:18 01/16/20 25 01/16/2025 COMP. METAB OLIC PANEL (14) alkaline phosphatase 86 IU/L 44-121 normal Not Available [facility] ([facility]) [address] [place], [address], 01/16/2025 08:24:18 01/16/20 25 01/16/2025 COMP. METAB OLIC PANEL (14) AST (SGOT) 14 IU/L 0-40 normal Not Available [facility] ([facility]) [address] [place], [address], 01/16/2025 08:24:18 01/16/20 25 01/16/2025 COMP. METAB OLIC PANEL (14) ALT (SGPT) 11 IU/L 0-32 normal Not Available [facility] ([facility]) [address] [place], [address], 01/16/2025 08:24:18 01/16/20 25 01/16/2025 LIPID PANEL cholesterol, total 190 mg/dL 100-19 9 normal Not Available [facility] ([facility]) [address] [place], [address], 01/16/2025 08:24:19 01/16/20 25 01/16/2025 LIPID PANEL triglyceride s 124 mg/dL 0-149 normal Not Available [facility] ([facility]) [address] [place], [address], 01/16/2025 08:24:19 01/16/20 25 01/16/2025 LIPID PANEL HDL cholesterol 62 mg/dL >39 normal Not Available [facility] ([facility]) [address] [place], [address], 01/16/2025 08:24:19 01/16/20 25 01/16/2025 LIPID PANEL VLDL cholesterol kaylee 22 mg/dL 5-40 Not Available [facility] ([facility]) [address] [place], [address], 01/16/2025 08:24:19 01/16/20 25 01/16/2025 LIPID PANEL LDL chol calc ([facility]) 106 mg/dL 0-99 above high normal Not Available [facility] ([facility]) [address] [place], [address], 01/16/2025 08:24:19 01/16/20 25 01/16/2025 LIPID PANEL LDL calc comment: CLINICAL ANALYST Not Available [facility] ([facility]) [address] [facility], [place], [address], 01/16/2025 08:24:19 01/16/20 25 01/16/2025 HEMOG LOBIN A1C hemoglobin A1C 6.6 % 4.8-5. 6 above high normal Predi abete s: 5.7 - 6.4 Diabe ambrosio: >6.4 Glyce rylan contr ol for adult s with diabe ambrosio: <7.0 Not Available [facility] ([facility]) [address] [facility], [place], [address], 01/16/2025 08:24:19 01/16/20 25 01/15/2025 micro album in/cr eatin ine, mass ratio , urine Microalbumin 80 Not Available [place] [facility] [address], [address], 01/15/2025 07:33:11 01/16/20 25 01/15/2025 micro album in/cr eatin ine, mass ratio , urine Creatinine 200 Not Available [facility] [address], [address], 01/15/2025 07:33:11 01/16/20 25 01/15/2025 micro album in/cr eatin ine, mass ratio , urine Ratio 30-300 Not Available [address], [address], 01/15/2025 07:33:11 01/30/20 25 01/29/2025 drug scree n, urine THC negati ve Not Available [place] [address], [address], 01/29/2025 10:37:59 01/30/20 25 01/29/2025 drug scree n, urine TCA negati ve Not Available [address], [address], 01/29/2025 10:37:59 01/30/20 25 01/29/2025 drug scree n, urine BAR negati ve Not Available [address], [address], 01/29/2025 10:37:59 01/30/20 25 01/29/2025 drug scree n, urine BZO negati ve Not Available [address], [address], 01/29/2025 10:37:59 01/30/20 25 01/29/2025 drug scree n, urine MTD negati ve Not Available [address], [address], 01/29/2025 10:37:59 01/30/20 25 01/29/2025 drug scree n, urine AMP negati ve Not Available [address], [place], [address], 01/29/2025 10:37:59 01/30/20 25 01/29/2025 drug scree n, urine MOP negati ve Not Available [address], [address], 01/29/2025 10:37:59 01/30/20 25 01/29/2025 drug scree n, urine OXY negati ve Not Available [address], [address], 01/29/2025 10:37:59 01/30/20 25 01/29/2025 drug scree n, urine MDMA negati ve Not Available [address], [place], [address], 01/29/2025 10:37:59 01/30/20 25 01/29/2025 drug scree n, urine TRUMAN negati ve Not Available [address], [place], [address], 01/29/2025 10:37:59 01/30/20 25 01/29/2025 drug scree n, urine PCP negati ve Not Available [address], [place], [address], 01/29/2025 10:37:59 01/30/20 25 01/29/2025 drug scree n, urine MET negati ve Not Available [address], [place], [address], 01/29/2025 10:37:59 07/17/20 24 07/17/2024 elect rocar diogr am No observ ation record ed. [facility] [address], [place], [address], 07/17/2024 16:30:12 07/21/20 24 07/17/2024 elect rocar diogr am No observ ation record ed. BARCODE [address], [place], [address], 07/21/2024 11:46:56 08/02/19 25 XR, chest , 2 view No observ ation record ed. [address] , [place], [address], 08/02/2024 11:38:18 08/02/19 25 US, neck, soft tissu e No observ ation record ed. [address] , [place], [address], 08/04/2024 09:45:34 08/03/19 25 US, neck, soft tissu e No observ ation record ed. [address] , [place], [address], 08/04/2024 09:45:34 02/06/20 25 02/05/2025 MRI, brain , w/o contr ast [facility] Name: RAFIA GUY [facility] [employer] Phys: Samuel CUMMINGS,[place] [address] : 1934 Age: 89 Sex: F Acct: [id number] Loc: G.MRI PHONE #: [phone] Exam Date: 2024 Status : REG CLI FAX #: [phone] Rad# [id number] Unit# [id number] Admit Date: 2024 EXAMS: CPT CODE: [id number] MRI BRAIN W/O CONTRA ST [address] EXAMIN ATION: MRI BRAIN WITHOU T CONTRA ST CLINIC AL INDICA TION: Female , 89 years old. DIZZIN ESS TECHNI QUE: Multip lanar multis equenc e MR images of the brain were obtain ed withou t intrav enous contra st. Unless otherw ise specif ied, incide ntal findin gs do not requir e dedica elisa imagin g follow -up. COMPAR NIRALI: No prior exam. FINDIN GS: INTRAC RANIAL : Diffus ion-we ighted images show no acute or early subacu te infarc tion. Cerebr al atroph y. Modera te bilate ral perive ntricu lar cerebr al white matter T2/FLA IR hyperi ntensi ties. No augmen elisa suscep tibili ty. There is no mass effect or midlin e shift. No abnorm al extraa xial fluid collec tion. VASCUL ATURE: There is some hyperi ntensi ty within the basal artery that may repres ent thromb us or athero sclero tic plaque . Normal flow voids within the major vessel s of the anteri or intrac ranial arteri al reticu lation and major dural venous sinuse s. SINUSE S: The visual ized portio ns of the parana valentino sinuse s are predom inantl y clear. The bilate ral mastoi d effusi ons, larger on the left. BONE: The marrow signal patter n is within normal limits . IMPRES KRISTINA: 1. No eviden ce of acute ischem ia. 2. Cerebr al atroph y with modera te chroni c small vessel ischem ic diseas e. 3. Bilate ral mastoi d effusi ons, larger on the left. 4. Hyperi ntensi ty within the basal artery may repres ent thromb us or athero sclero tic plaque . Recomm end furthe r evalua tion with intrac ranial CTA or MRA. Urgent commun icatio n note entere d at 4:45 PM Easter n time on February 05, 2025. Electr onical ly signed by: Kenia Lyon DO 2024 04:46 PM EDT RP Workst ation: [id number] [id number] PAGE 1 Signed Report (JOVAN NUED) [facility] Name: RAFIA GUY KEN [facility] [employer] Phys: [place] [address] : 1934 Age: 89 Sex: F Acct: [id number] Loc: G.MRI PHONE #: [phone] Exam Date: 2024 Status : REG CLI FAX #: Rad# [id number] Unit# [id number] Admit Date: 2024 EXAMS: CPT CODE: [id number] MRI BRAIN W/O CONTRA ST 10002 Electr onical ly Signed by KENIA LYON DO on 2024 at 1638 Report ed and signed by: Shiloh LYON DO CC: Seng Baker MD Dictat ed Date/T ree: 2024 (1638) Techno logist : BRITTA GRIMES Transc ribed Date/T ree: 2024 (1638) Transc riptio nist: DR.HAL Quiroga Signat ure Date/T ree: 2024 (2525) Printe d Date/T ree: 2024 (7919) BATCH NO: N/A PAGE 2 Signed Report CC'ed Logic: Orderi ng Provid er: SAMUEL LOU Attend ing Provid er: SAMUEL LOU Referr ing Provid er: SAMUEL LOU Consul ting Provid er: SAMUEL LOU [address] [place], [address], 02/06/2025 15:43:55 02/06/20 25 02/05/2025 MRI, brain , w/o contr ast No observ ation record ed. [address] [place], [address], 02/06/2025 10:31:36 Result Notes Documentation Provider Name and Address Organization Details Recorded Time Mri, Brain, W/o Contrast : [facility] Ce Name: JOSE KYLE [address] [place] [address] Phys: [place] [address] : 1935 Age: 89 Sex: F Acct: [id number] Loc: G.MRI PHONE #: Exam Date: 02/05/2025 Status: REG CLI FAX #: Rad# [id number] Unit# [id number] Admit Date: 02/05/2025 EXAMS: CPT CODE: [id number] MRI BRAIN W/O CONTRAST 86858 EXAMINATION: MRI BRAIN WITHOUT CONTRAST CLINICAL INDICATION: Female, 89 years old. DIZZINESS TECHNIQUE: Multiplanar multisequence MR images of the brain were obtained without intravenous contrast. Unless otherwise specified, incidental findings do not require dedicated imaging follow-up. COMPARISON: No prior exam. FINDINGS: INTRACRANIAL: Diffusion-weighted images show no acute or early subacute infarction. Cerebral atrophy. Moderate bilateral periventricular cerebral white matter T2/FLAIR hyperintensities. No augmented susceptibility. There is no mass effect or midline shift. No abnormal extraaxial fluid collection. VASCULATURE: There is some hyperintensity within the basal artery that may represent thrombus or atherosclerotic plaque. Normal flow voids within the major vessels of the anterior intracranial arterial reticulation and major dural venous sinuses. SINUSES: The visualized portions of the paranasal sinuses are predominantly clear. The bilateral mastoid effusions, larger on the left. BONE: The marrow signal pattern is within normal limits. IMPRESSION: 1. No evidence of acute ischemia. 2. Cerebral atrophy with moderate chronic small vessel ischemic disease. 3. Bilateral mastoid effusions, larger on the left. 4. Hyperintensity within the basal artery may represent thrombus or atherosclerotic plaque. Recommend further evaluation with intracranial CTA or MRA. Urgent communication note entered at 4:45 PM Eastern time on February 05, 2025. Electronically signed by: Kenia Lyon DO 02/05/2025 04:46 PM EDT PAGE 1 Signed Report (CONTINUED) [facility] Ce Name: JOSE KYLE [address] [place] [address] Phys: [place] [address] : 1935 Age: 89 Sex: F Acct: [id number] Loc: G.MRI PHONE #: Exam Date: 02/05/2025 Status: REG CLI FAX #: Rad# [id number] Unit# [id number] Admit Date: 02/05/2025 EXAMS: CPT CODE: [id number] MRI BRAIN W/O CONTRAST 15637 at 1638 Reported and signed by: KENIA LYON DO CC: Chase Baker MD Dictated Date/Time: 02/05/2025 (1638) Technologist: BRITTA GRIMES Transcribed Date/Time: 02/05/2025 (1638) [employer]ator: Electronic Signature Date/Time: 02/05/2025 (1638) Printed Date/Time: 02/05/2025 (1649) BATCH NO: N/A PAGE 2 Signed Report CC'ed Logic: Ordering Provider: SAMUEL LOU Attending Provider: SAMUEL LOU Referring Provider: SAMUEL LOU Consulting Provider: SAMUEL [place] - [facility] 02/06/2025 15:43:55 Problems Name Problem SNOMED Code Status Onset Date Resolution Date Notes Provider Name and Address Organization Details Recorded Time Long-term current use of drug therapy 240953807 Active 2020 MYNOR Nunez - [facility] 1 07:47:09 Gastroesophag eal reflux disease without esophagitis 497144756 Active 2020 MYNOR Nunez - [facility] 1 07:47:34 Osteoarthriti s 545645582 Active 2020 Emi Salazar PA-C [address], [place], [address] , [place] - [facility] 1 10:42:10 Change in stool consistency 608872470 Active 2021 Chase Baker MD [address], [place], [address] , [place] - [facility] 2 10:03:51 Type 2 diabetes mellitus 04970894 Active 2022 MYNOR Nunez - [facility] 3 10:01:54 Herpes zoster 4283667 Active 2023 Emi Holt PA-C [address], [place], [address] , [place] - [facility] 4 11:05:04 Dizziness 224133821 Active 2023 Emi Holt PA-C [address], [place], [address] , [place] - [facility] 4 13:44:05 Chronic back pain 645692061 Active 2023 Emi Holt PA-C [address], [place], [address] , [place] - [facility] 4 13:54:30 Problem Notes None recorded. Procedures Surgical History Date Name Laterality Status Provider Name and Address Organization Details Recorded Time 01/16/20 Advance Care Planning completed Yaz LOWE - [facility] 01/15/2025 07:58:01 06/23/20 25 Functional Status Assessed completed [facility] 01/15/2025 07:58:01 01/10/20 24 [address] [facility] 01/10/2024 07:35:39 01/10/20 24 Functional Status Assessed completed [facility] 01/10/2024 07:35:39 01/15/20 23 [address] Care Planning [facility] 01/13/2023 08:59:15 01/15/20 23 Functional Status Assessed completed [facility] 01/13/2023 08:59:15 01/14/20 22 [address] Care Planning [address] [facility] 01/13/2022 09:18:03 01/14/20 22 Functional Status Assessed completed [facility] 01/13/2022 09:18:03 06/05/20 21 Joint Injection completed Emi Salazar PA-C [address], [place], [address] 06/05/2021 10:47:46 07/26/19 19 Most Recent Bone Density completed [facility] 02/05/2021 10:36:46 01/03/20 10 Date of Last Colonoscopy completed [facility] 02/05/2021 10:36:46 07/26/19 10 Date of Last Mammogram completed [facility] 02/05/2021 10:36:46 07/26/[address] [facility] 02/05/2021 10:36:46 07/26/19 10 Date of Last Pap Smear completed [facility] 04/11/2021 09:40:14 12/29/[address] [facility] 04/11/2021 09:40:19 05/30/[address] [facility] 02/05/2021 10:37:01 12/29/[address] [facility] 02/05/2021 10:37:01 Hysterectomy completed Jessie LOWE - [facility] 01/22/2021 09:45:42 Back Surgery completed Jessie LOWE - [facility] 01/22/2021 09:45:55 repair of rotator cuff by suture completed Jessie LOWE - [facility] 01/22/2021 09:46:06 Orthopedic Surgery completed Yaz Cleaning [place] - [facility] 02/05/2021 10:37:01 Tonsillectomy completed [facility] 02/05/2021 10:37:01 Imaging Results None recorded. Procedure Notes None recorded. Medical Equipment None Reported. Allergies No known drug allergies Medications Name Sig Start Date Stop Date Status Note LastModified by Organization Details LastModified Time amoxicillin 500 mg capsule Take 1 capsule twice a day by oral route for 7 days. 12/21 completed Not Available Not Available Not Available metformin 500 mg tablet Take 1 tablet every day by oral route for 90 days. 2024 active Not Available Not Available Not Avai lable prednisone 10 mg tablet Take 1 tablet by oral route as directed. 02/28 completed Not Available Not Available Not Available tizanidine 2 mg tablet Take 1 tablet every 12 hours by oral route as needed for 2 days. 07/14 completed Not Available Not Available Not Available aspirin 325 mg tablet Take 1 tablet every day by oral route. 07/12 completed Not Available Not Available Not Available valacyclovi r 1 gram tablet Take 1 tablet every 8 hours by oral route for 7 days. 07/17 completed Not Available Not Available Not Available hydrocodone 5 mg-acetamin ophen 325 mg tablet prn 10/17 completed Not Available Not Available Not Available meloxicam 15 mg tablet Take 1 tablet every day by oral route. 2024 active Not Available Not Available Not Avai lable prednisone 20 mg tablet Take 1 tablet every day by oral route for 5 days. 12/26 completed Not Available Not Available Not Available prednisone 5 mg tablet Take 1 tablet every day by oral route for 90 days. 2024 active Not Available Not Available Not Avai lable meclizine 12.5 mg tablet Take 1 tablet twice a day by oral route as needed for 5 days. 08/07 completed Not Available Not Available Not Available ciprofloxac in 500 mg tablet Take 1 tablet every 12 hours by oral route for 7 days. 01/09 completed Not Available Not Available Not Available Kenalog 40 mg/mL suspension for injection Take 4 mL every day by injection route for 1 day. 08/12 completed Not Available Not Available Not Available meloxicam 7.5 mg tablet Take 1 tablet every day by oral route for 90 days. 04/23 completed Not Available Not Available Not Available oxycodone-a cetaminophe n 5 mg-325 mg tablet prn 10/17 completed Not Available Not Available Not Available estradiol 1 mg tablet Take 1 tablet every day by oral route for 90 days. 2024 active Not Available Not Available Not Avai lable Valium 5 mg tablet Take 1 tablet every day by oral route for 1 day. 02/06 completed Not Available Not Available Not Available meclizine 25 mg tablet Take 1 tablet 3 times a day by oral route for 14 days. 02/08 completed Not Available Not Available Not Available prednisone 2.5 mg tablet Take 1 tablet every day by oral route. 07/16 completed Not Available Not Available Not Available cephalexin 500 mg capsule 06/13 completed Not Available Not Available Not Available diclofenac sodium 75 mg tablet,jazmin yed release 1 tablet twice daily 07/12 completed Not Available Not Available Not Available clobetasol 0.05 % scalp solution as needed 06/13 completed Not Available Not Available Not Available etodolac 500 mg tablet Take 1 tablet twice a day by oral route for 14 days. 02/28 completed Not Available Not Available Not Available amoxicillin 500 mg-potassiu m clavulanate 125 mg tablet Take 1 tablet twice a day by oral route as directed for 7 days. 12/21 completed Not Available Not Available Not Available duloxetine 20 mg capsule,del ayed release 1 capsule daily 02/08 completed Not Available Not Available Not Available duloxetine 30 mg capsule,del ayed release 07/30 completed Not Available Not Available Not Available Vitamin D3 onwe a day over the counter active Not Available Not Available No t Available Probiotic one tab po qd 01/15 completed Not Available Not Available Not Available Linzess 145 mcg capsule TAKE 1 CAPSULE BY MOUTH DAILY 2023 active Not Available Not Available Not Avai lable Vitamin B12 daily 01/14 completed Not Available Not Available Not Available Vitals Date Recorded Body height Respiratory rate Body mass index (BMI) Body weight Body temperature Heart rate Oxygen saturation Oxygen saturation in Arterial blood by Pulse oximetry Systolic And Diastolic Provider Name and Address Organization Details Last Updated DateTime 5 170.18 cm 14 /min 25.1 kg/m2 12091.7 8 g 98.6 [degF] 68 /min 98 % 98 % 118/62 mm[Hg] Britta Hidalgo [facility] 5 13:36:44 Date Recorded Body height Body mass index (BMI) Body weight Pain severity - 0-10 verbal numeric rating [Score] - Reported Body temperature Heart rate Oxygen saturation Oxygen saturation in Arterial blood by Pulse oximetry Respiratory rate Systolic And Diastolic Provider Name and Address Organization Details Last Updated DateTime 5 170.18 cm 24.7 kg/m2 05597.5 9 g 0 97.4 [degF] 63 /min 97 % 97 % 14 /min 124/70 mm[Hg] [facility] 5 09:22:47 Date Recorded Body height Body temperature Heart rate Oxygen saturation Oxygen saturation in Arterial blood by Pulse oximetry Respiratory rate Pain severity - 0-10 verbal numeric rating [Score] - Reported Systolic And Diastolic Provider Name and Address Organization Details Last Updated DateTime 5 170.18 cm 97.8 [degF] 60 /min 97 % 97 % 14 /min 0 116/76 mm[Hg] [facility] 13:08:28 Date Recorded Body height Body mass index (BMI) Body weight Body temperature Heart rate Oxygen saturation Oxygen saturation in Arterial blood by Pulse oximetry Respiratory rate Pain severity - 0-10 verbal numeric rating [Score] - Reported Systolic And Diastolic Provider Name and Address Organization Details Last Updated DateTime 5 170.18 cm 23.9 kg/m2 30288.7 9 g 97.2 [degF] 74 /min 99 % 99 % 14 /min 0 122/74 mm[Hg] Yaz Cleaning [place] - [facility] 5 09:22:31 Date Recorded Body height Respiratory rate Pain severity - 0-10 verbal numeric rating [Score] - Reported Body temperature Heart rate Oxygen saturation Oxygen saturation in Arterial blood by Pulse oximetry Systolic And Diastolic Provider Name and Address Organization Details Last Updated DateTime 5 170.18 cm 14 /min 0 97.6 [degF] 81 /min 97 % 97 % 142/74 mm[Hg] Bing Chandler [place] - [facility] 5 10:17:41 Social History Question Answer Notes LastModified by Organizat ion Details LastModified Time Tobacco Smoking Status Never Smoker Yaz trammell [place] - [facility] 01/22/2021 07:50:27 Do You Have An Advance Directive? Yes Information n ot available 02/05/2021 Are You Blind Or Do You Have Difficulty Seeing? No [email or web address] Information n ot available 07/12/2023 Is Blood Transfusion Acceptable In An Emergency? Yes Information not available 02/05/2021 What Is Your Level Of Caffeine Consumption? Moderate Information not available 02/05/2021 How Much Tobacco Do You Chew? None Information not available 02/05/2021 In The 14 Days Before Symptom Onset, Have You Had Close Contact With A Laboratory-confirm ed COVID-19 While That Case Was Ill? No [email or web address] Information n ot available 07/12/2023 In The 14 Days Before Symptom Onset, Have You Had Close Contact With A Person Who Is Under Investigation For COVID-19 While That Person Was Ill? No [email or web address] Information not available 07/12/2023 Have You Been To An Area Known To Be High Risk For COVID-19? No [email or web address] Information not available 07/12/2023 Are You Deaf Or Do You Have Serious Difficulty Hearing? No [email or web address] Information not available 07/12/2023 What Type Of Diet Are You Following? REGULAR Information n ot available 02/05/2021 Which Illicit Or Recreational Drugs Have You Used? None Information not available 02/05/2021 Have You Processed Blood Or Body Fluids From An Ebola Virus Disease Patient Without Appropriate PPE? No [email or web address] Information not available 07/12/2023 Do You Reside In Or Have You Traveled To An Area Where Ebola Virus Transmission Is Active? No [email or web address] Information not available 07/12/2023 Hard Of Hearing Or Deaf In One Or Both Ears? No [email or web address] Information not available 04/01/2022 Have You Recently Or Are You Planning To Travel To An Area With Zika Virus? No [email or web address] Information not available 07/12/2023 Legally Blind In One Or Both Eyes? No [email or web address] Information no t available 04/01/2022 Live Alone Or With Others? Alone [email or web address] Information not available 04/01/2022 What Was The Date Of Your Most Recent Tobacco Screening? 01/29/2025 [email or web address] Information not available 01/29/2025 How Many Children Do You Have? 4 Information not available 02/05/2021 Performs Monthly Self-breast Exam? Yes [email or web address] Information no t available 04/01/2022 What Is Your Relationship Status? Information not available 02/05/2021 Seat Belts Used Routinely Yes [email or web address] Information not available 04/01/2022 Smoke Alarm In Home Yes [email or web address] Information not available 04/01/2022 Are You Passively Exposed To Smoke? No Information no t available 02/05/2021 How Much Tobacco Do You Smoke? No Information not available 02/05/2021 General Stress Level Low [email or web address] Information not available 04/01/2022 Do You Use Sunscreen Routinely? No Information not available 02/05/2021 Has Tobacco Cessation Counseling Been Provided? No Information not available 01/13/2023 Do You Have Difficulty Walking Or Climbing Stairs? No [email or web address] Information not available 07/12/2023 Sex: Female Functional Status Question Answer Note LastModified by Organizat ion Details LastModified Time Do you or have you ever used smokeless tobacco? Never used smokeless tobacco Information not available 02/05/2021 Are you currently employed? No Information not available 02/05/2021 Do you have transportation difficulties? No [email or web address] Information not available 07/12/2023 Are you able to care for yourself independently? Yes [facility] Information not available 02/05/2021 Do you have difficulty dressing, bathing, grooming, or toileting? No [email or web address] Information not available 07/12/2023 Do you or have you ever used e-cigarettes or vape? Never used electronic cigarettes [facility] Information not available 01/22/2021 What is your exercise level? Moderate [facility] Information not available 02/05/2021 Do you use any illicit or recreational drugs? No [facility] Information not available 01/13/2023 Do you or have you ever used any other forms of tobacco or nicotine? No [facility] Information not available 01/13/2023 What is your level of alcohol consumption? None [facility] Information not available 02/05/2021 Are you able to walk independently without assistance or assistive devices? YESWOREST [email or web address] Information not available 04/01/2022 Do you have difficulty doing errands alone? No [email or web address] Information not available 07/12/2023 What is your occupation? retired [facility] Information not available 02/05/2021 Mental Status Question Answer Note LastModified by Organization D etails LastModified Time Do you have difficulty concentrating, remembering or making decisions? No [email or web address] Information no t available 07/12/2023 Family History Relationship Description Onset Age of this Age Resolved Age Notes LastModified by Organization Details LastModified Time Mother Neoplasm of stomach [facility] Not available 2020 07:48:46 Brother Non-Hodgkin' s lymphoma (clinical) Not available 01/24 13:26:36 Medical History Condition Response Allergies/Hayfever N Arthritis Y Hyperthyroidism N AIDS/HIV N Acid Reflux (GERD) N Hyperlipidemia N Abuse/Domestic Violence N Hypoglycemia N GI Problems Y Acne N ADD/ADHD N Hypertriglyceridemia N Hypercholesterolemia N Alzheimer's Disease N Hypertension N Gynecological History Statement/Question Response Abnormal Pap N Date of Last Mammogram 07/26/2009 Date of LMP 07/26/1969 Post Menopausal Bleeding N STIs/STDs N Colposcopy 07/26/2009 HPV Vaccine N Duration of Flow (days) 0 Current Control Method None Age at Menarche 16 Age at First Child 18 Date of Last Colonoscopy 01/02/2010 Most Recent Bone Density 07/26/2018 Sexually Active? N Date of Last Pap Smear 07/26/2009 Sexual Problems? N Hormone Replacement Therapy N Obstetrics History GPAL:G 0 P 0 0 0 0 Immunizations Vaccine Type Date Status Note Provider Nam e and Address Organization Details Recorded Time influenza, unspecified formulation 4 completed Britta Hidalgo null, [facility] 07/24/2024 13:19:21 Influenza, high-dose, trivalent, PF 4 completed Britta Hidalgo null, [facility] 07/24/2024 13:19:21 COVID-19, mRNA, LNP-S, PF, 100 mcg/0.5mL dose or 50 mcg/0.25mL dose 1 completed Emi Salazar PA-C [address], [place], [address], [facility] - [facility] 05/23/2021 11:08:02 Tdap 2 completed Yaz Cleaning null, [facility] 01/13/2022 10:06:06 Pneumococcal conjugate PCV20, polysaccharide DYE281 conjugate, adjuvant, PF 2 completed Yaz Cleaning null, [facility] 01/13/2022 10:05:22 COVID-19, mRNA, LNP-S, bivalent, PF, 50 mcg/0.5 mL or 25mcg/0.25 mL dose 3 completed [employer] null, [facility] 07/30/2022 10:18:01 zoster recombinant 2 completed Florentino Bah null, [place] - [facility] 10/06/2022 16:21:12 zoster recombinant 2 completed Florentino Bah null, [facility] 10/06/2022 16:21:12 Influenza, high-dose, quadrivalent, PF 1 completed Florentino Bah null, [place] - [facility] 10/06/2022 16:21:12 Influenza, high-dose, quadrivalent, PF 2 completed Florentino Bah [place] - [facility] 10/06/2022 16:21:12 COVID-19, mRNA, LNP-S, PF, 100 mcg/0.5mL dose or 50 mcg/0.25mL dose 1 completed Florentino Bah null, [place] - [facility] 10/06/2022 16:21:12 COVID-19, mRNA, LNP-S, PF, 100 mcg/0.5mL dose or 50 mcg/0.25mL dose 1 completed Florentino Bah null, [place] - [facility] 10/06/2022 16:21:12 Influenza, high-dose, quadrivalent, PF 3 completed Jessie Ackerman null, [place] - [facility] 07/12/2023 09:23:23 Past Encounters Encounter ID Performer Location Encounter Start Date Encounter Closed Date Diagnosis/Indication Diagnosis SNOMED-CT Code Diagnosis ICD10 Code Diagnosis IMO Codes Diagnosis Note [id number] Chase Baker MD [address] [address] 01/22/2021 09:26:25 01/22/2021 11:12:17 Low back pain 110079449 M54.5 Lightheadedness 26648409 8 R42 [id number] Chase Baker MD [address] [address] 02/05/2021 10:21:41 02/05/2021 10:57:26 Orthostatic hypotension 70489695 I95.1 Microscopic hematuria 19 4942333 R31.29 [id number] Maude Cleaning APRN [address] [place] [address] 02/13/2021 13:11:39 02/13/2021 14:19:28 Bilirubinuria 30807853 R82.2 Dysfunctio n of sphincter of Oddi 976970506 K83.8 Kidney stone 85287611 N2 0.0 -Non obstructin g on US.-no mention of stones on CT-regardl ess, nonobstruc ting and no hematuria. advised not a cause of pain. Glycosuria 19226354 R81 Abdominal pain 95530513 R10.9 [id number] [address] [address] 02/17/2021 08:16:59 02/17/2021 08:48:23 Abdominal pain 48066975 R10.9 Thoracic radiculopathy 60515028 M54.14 [id number] Chase Baker MD [address] [address] 02/28/2021 08:30:03 02/28/2021 08:55:22 Lumbago with sciatica 912808958 M54.41 Pain in ri ght lower limb 043839825 M79.309 [id number] Chase Baker MD [address] [address] 04/11/2021 09:28:30 04/11/2021 09:52:15 Lumbago with sciatica 119813573 M54.41 Synovial c yst of right knee 6362571524 33405 M71.21 [id number] Emi Salazar PA-C [address] [address] 2 05/23/2021 10:07:48 05/23/2021 11:17:07 Administration of SARS-CoV-2 antigen vaccine 067635838 Z23 [id number] Emi Salazar PA-C [address] [address] 06/05/2021 10:27:17 06/05/2021 10:48:36 Pain of left hip joint 7384609853 26991 M25.552 went over to use moist heat, lidocain cream. pt tolerated well. Long-term drug therapy 764668789 Z79.899 chronic conditions are stable. pt did not need refills, she will call if needs refills. Osteoarthritis 181638478 M19.90 [id number] Chase Baker MD [address] [address] 07/14/2021 09:23:33 07/14/2021 09:59:27 Gastroesophageal reflux disease without esophagitis 709993560 K21.9 Osteoarthritis 079366580 M19.90 Long-term current use of drug therapy 083956436 Z79.899 Long-term drug therapy 694788907 Z79.899 Taking med ication for chronic disease 8049606215 53646 Z76.89 Z00.00 [id number] Chase Baker MD [address] [address] 07/15/2021 08:57:59 07/15/2021 09:17:53 Diabetes mellitus 81282391 E11.9 Long-term drug therapy 445200155 Z79.076 [id number] Chase Baker MD [address] [address] 2 08/12/2021 09:21:24 08/12/2021 09:40:13 Type 2 diabetes mellitus without complication 742924643 E11.9 improved, doing well. Osteoarthritis 844091641 M19.90 try otc tylenol [id number] Chase Baker MD [address] [address] 01/13/2022 09:28:36 01/13/2022 10:01:38 Adult health examination 966249849 Z00.00 Depression screening 171 187627 Z13.89 Examinatio n of blood pressure 482225304 Z01.30 Diet education 70953404 Z71.3 Counseling 676026203 Z71 .82 Exercise counseling . Patient encouraged to exercise 30 minutes 5 days a week. [facility] for falls 289469695 Z91.81 STEADI FAST screening score of ___0__. Advance care planning 71 0812595 Z71.89 Gastroesop hageal reflux disease without esophagitis 752179857 K21.9 Long-term current use of drug therapy 299609562 Z79.899 Administra tion of diphtheria, pertussis, and tetanus vaccine 675047971 Z23 Administra tion of pneumococcal vaccine 23835888 Z23 Long-term drug therapy 853475083 Z79.899 Body mass index 20-24 - normal 486902642 Z68.24 24.3 Taking med ication for chronic disease 0226603835 14844 Z76.89 Z00.00 [id number] Chase Baker MD [address] [address] 02/05/2022 13:43:24 02/05/2022 15:19:48 [id number] Indigo Lance APRN [facility] [address] [place] [address] 04/01/2022 15:18:18 04/01/2022 16:35:36 Senile hyperkeratosis 249587292 L82.1 offered reassuranc e defers a full skin exam todayencou raged to return if she would like to have a skin cancer screening [id number] Chase Baker MD [address] [address] 07/16/2022 09:25:51 07/16/2022 10:33:48 Long-term current use of drug therapy 162500354 Z79.899 Change in stool consistency 542768704 R19.5 Taking med ication for chronic disease 2485451602 31054 Z76.89 Z00.00 Chronic back pain 137627 002 G89.29 [id number] Chase Baker MD [address] [address] 07/30/2022 08:48:50 07/30/2022 09:43:07 Change in stool consistency 181805009 R19.5 Altered jah wel function 37419582 R19.4 no oral contrast Acute urin gabrielle tract infection 260431523 N39.0 [id number] Maude Cleaning [facility] [address] [place] [address] 10/14/2022 09:44:52 10/14/2022 10:48:01 Abnormal urine 077413947 R82.90 History of urinary tract infection 7079752276 107 Z87.276 [id number] Chase Baker MD [address] [address] 01/14/2023 08:47:20 01/14/2023 09:24:23 Adult health examination 040267389 Z00.00 Depression screening 171 782329 Z13.31 Examinatio n of blood pressure 343681470 Z01.30 Diet education 88392020 Z71.3 Counseling 760172838 Z71 .82 Exercise counseling . Patient encouraged to exercise 30 minutes 5 days a week. [facility] for falls 355830097 Z91.81 STEADI FAST screening score of __0___. Advance care planning 71 1426364 Z71.89 Gastroesop hageal reflux disease without esophagitis 612846848 K21.9 Long-term current use of drug therapy 462945806 Z79.899 Type 2 leatha betes mellitus 40855117 E11.9 Body mass index 20-24 - normal 601420289 Z68.24 24.4 Taking med ication for chronic disease 7830292435 69317 Z76.89 Z00.00 Periorbital edema 950420 00 H05.423 [id number] Chase Baker MD [address] [address] 07/12/2023 09:05:53 07/12/2023 10:34:29 Tolerant non-smoker 25687810 Z87.891 Body mass index 25-29 - overweight 989743715 Z68.27 27.4 Overweight 393826724 E66 .3 Gastroesop hageal reflux disease without esophagitis 862061164 K21.9 Osteoarthritis 667099749 M19.90 try otc tylenol Type 2 leatha betes mellitus 36646027 E11.9 Long-term current use of drug therapy 023953012 Z79.899 Taking med ication for chronic disease 5406493807 80492 Z76.89 Z00.00 [id number] Chase Baker MD [address] [address] 10/19/2023 08:42:09 10/19/2023 09:56:51 Chronic constipation 427903361 K59.09 [id number] Chase Baker MD [address] [address] 11/04/2023 09:13:40 11/04/2023 10:13:53 Change in stool consistency 282968342 R19.5 Long-term current use of drug therapy 593668839 Z79.899 Constipation 44325324 K5 9.00 Osteoarthritis 493586982 M19.90 try otc tylenol [id number] Anil Toure PA-C [address] [address] 12/15/2023 14:18:10 12/15/2023 14:38:05 Dysfunction of bilateral eustachian tubes 2724438972 699100 H69.93 Vertigo 646533817 R42 [id number] Anil Toure PA-C [facility] [address] [address] 12/22/2023 13:18:09 12/22/2023 13:46:38 Fatigue 10015343 R53.83 -NEW Vertigo 649542243 R42 -IMPROVING [id number] Anil Toure PA-C [facility] [address] [address] 12/27/2023 10:29:28 12/27/2023 10:53:27 Osteoarthritis 221591801 M19.90 Chronic back pain 251241 002 G89.29 Long-term drug therapy 733399170 Z79.899 Dizziness 798882636 R42 Increased frequency of urination 548219947 R35.0 [id number] Anil Toure PA-C [address] [address] 12/29/2023 13:01:51 12/29/2023 13:59:23 Dizziness 741322702 R42 -stable Disorder of mastoid 5599 6006 H74.92 -new Vertigo 331143914 R42 -STABLE Cervical radiculopathy 03923729 M54.12 Pain of ri ght shoulder joint 9434513109 4258346 M25.211 [id number] Chase Baker MD [address] [address] 01/10/2024 08:43:33 01/10/2024 09:33:37 Adult health examination 173872927 Z00.00 Depression screening 171 927608 Z13.31 A depression screening was completed via a standardiz ed screening tool. 0 minutes were spent discussing depression screening results and risk factors. Examinatio n of blood pressure 054365534 Z01.30 Diet education 71979623 Z71.3 Counseling 353256875 Z71 .82 Exercise counseling . Patient encouraged to exercise 30 minutes 5 days a week. At [facility] risk for falls 912241100 Z91.81 STEADI FAST screening score of ___0__. Advance care planning 71 0115019 Z71.89 Taking med ication for chronic disease 2958316623 73585 Z76.89 Z00.00 Body mass index 20-24 - normal 673186413 Z68.24 24.6 [id number] Chase Baker MD [address] [address] 02/09/2024 08:44:31 02/09/2024 09:16:22 Dizziness 743548322 R42 resolved [id number] Emi Holt PA-C [address]9[address] 2 06/13/2024 10:48:13 06/13/2024 11:36:15 Herpes zoster 8720628 B02.9 -NewPt has apt with Dr. Nash at 1:45 today [id number] Chase Baker MD [place] 6[address] 2 07/17/2024 08:46:11 07/17/2024 10:20:54 Gastroesophageal reflux disease without esophagitis 785492374 K21.9 Osteoarthritis 543073167 M19.90 try otc tylenol Type 2 leatha betes mellitus 12018978 E11.9 Long-term current use of drug therapy 128514663 Z79.899 Taking med ication for chronic disease 7161138854 54557 Z76.89 Z00.00 Submandibu lar salivary gland swelling 487619471 K11.9 Atypical chest pain 1025 03726 R07.89 [id number] Emi Holt PA-C [address] [address] 07/24/2024 13:15:32 07/24/2024 14:13:06 Type 2 diabetes mellitus 41324766 E11.9 -Newdiscus sed monitoring at home. goal of 120-130s Chronic back pain 669918 002 G89.29 -discussed chronic steriod use and BG, decrease prednisone to 2.5, she states she should be able to manage with the 2.5 mg dose Dizziness 555561844 R42 Pt had ecg last week and is seeing Dr. Morin. he has scheduled a stress test.She is also supposed to have a carotid us.Orthost atics:130/ 62, 55795/68, 72695/68, 68discusse d pushing fluids [id number] Emi Holt PA-C [facility] [address] [address] 08/07/2024 13:25:54 08/07/2024 14:04:33 Type 2 diabetes mellitus 86311860 E11.9 -Newdiscus sed monitoring at home. goal of 120-130s Chronic back pain 159498 002 G89.29 -discussed chronic steriod use and BGThere does seem to be a correlatio n with the full 5mg dose and BG being higher the next day so she is going to take 2.5 mg qd instead of alternatin g [id number] Chase Baker MD [address] [address] 08/14/2024 09:04:32 08/14/2024 09:41:57 Chronic hoarseness 8132362549 105 R49.0 [id number] Emi Holt PA-C [facility] [address] [address] 10/17/2024 12:48:25 10/17/2024 13:27:22 Type 2 diabetes mellitus 12980115 E11.9 -ldtxfiJ7S : 7.4Cont with metformind iscussed monitoring at home. goal of 120-130sPt wants to wait till her check up for full blood work [id number] Chase Baker MD [address] [address] 01/15/2025 09:04:34 01/15/2025 10:04:25 Gastroesophageal reflux disease without esophagitis 783197863 K21.9 Osteoarthritis 137968269 M19.90 try otc tylenol Type 2 leatha betes mellitus 06597559 E11.9 Long-term current use of drug therapy 531803438 Z79.899 Taking med ication for chronic disease 0931018667 00121 Z76.89 Z00.00 Adult heal th examination 869275642 Z00.00 Depression screening 171 360318 Z13.31 A depression screening was completed via a standardiz ed screening tool. 5 minutes were spent discussing depression screening results and risk factors. Examinatio n of blood pressure 748555623 Z01.30 Diet education 27849220 Z71.3 Counseling 011978347 Z71 .82 Exercise counseling . Patient encouraged to exercise 30 minutes 5 days a week. At [facility] risk for falls 015550140 Z91.81 STEADI FAST screening score of __2___. Advance care planning 71 1220688 Z71.89 Long-term drug therapy 390357396 Z79.899 Dizziness 147955984 R42 [id number] resolved [id number] Anil Toure PA-C [address] [address] 01/29/2025 10:12:37 01/29/2025 10:41:33 Generalized anxiety disorder 95592374 F41.1 52935 Therapeuti c drug monitoring assay 38755746 Z51.81 0081458 Health Concerns Section Related Observation LastModified by Organization Detai ls LastModified Time None Recorded Concern Status LastModified by Organization Details LastModified Time None Recorded Advance Directives Directive Y: Payers Insurance Date Sequence Insurance Name Policy Number Policy Mccabe Covered Member ID Mccabe Member ID Guarantor Name 01/26/2025 1 [place]ARE[place] Jose Kyle [id number] Jose Kyle 11/08/2024 1 HEALTH PLAN [facility] (MEDICARE REPLACEMENT HMO) Jose Kyle [id number] Jose Kyle 08/02/2024 1 *SELF PAY* Jann Kyle 08/02/2024 1 *SELF PAY* Jann Kyle 01/26/2025 [employer] [place] [facility] (MEDICARE) Jose Kyle [id number] Jose Kyle 03/25/2025 2 [facility] (MEDICARE SUPPLEMENT) Jose Kyle [id number] Jose Kyle 11/08/2024 1 [employer] (MEDICARE REPLACEMENT/AD VANTAGE - PPO) Jose Kyle [id number] Jose Kyle Notes Date Note Type Note Provider Name and Address Organization Details Recorded Time 08/07/2024 text/html ROS as noted in the HPI pt presents to the office for a fu on t2dm. pt BG has been running 112-140, pt states she has cut back on sweets and has made changes to her diet. pt wants to keep from taking medication if she canShe has been doing well with the metformin and no side effects from itPt denies chest pain, SOA, trouble swallowing, or trouble going to the bathroom. Emi Holt PA-C [address], [place], [address], [place] - [facility] 08/07/2024 14:02:07 08/14/2024 text/html pt is here for fu on horseness mildly improved but not better first noticed this 2 months ago with a sinus infection us neck normal disc ent appt w dr anshul Baker MD [address], [place], [address], [place] - [facility] 08/14/2024 09:39:33 10/17/2024 text/html ROS as noted in the HPI Pt presents today to follow up on t2dmPt reports she had back surgery about 3 weeks agoshe is doing prednisone 5mg every other dayBG has been running around 100-120s. Pt is otherwise doing good today.She is tolerating the metformin wellPt denies chest pain, SOA, trouble swallowing, or trouble going to the bathroom. Emi Holt PA-C [address], [place], [address], [place] [facility] 10/17/2024 13:27:41 01/15/2025 text/html Medicare Annual Wellness VisitReported by PatientSocial/Behavio ral HistoryFor diet and nutrition, patient reportshealthy diet. For fracture risk, patient reportsno history of fractures,no recent explained fracture,no sudden unexplained fractures, andno previous musculoskeletal injuries. For physical activity, patient reportsexercises on a regular basis,recent increase in physical activity, andgood physical condition.Mental Status:For depression risk, patient reportsnever feels sad, empty, or tearful,no loss of interest in activities,no significant changes in weight,no sleep disturbances or insomnia,no agitation,no loss of energy,no feelings of worthlessness or guilt,no thoughts of suicide,no history of depression, andno history of mood disorders. For orientation, patient reportsno disorientation to time,no disorientation to date, andno disorientation to place. For concentration and memory, patient reportsno decreased concentrating ability,no memory lapses or loss, anddoes not forget words. For speech/motor difficulties, patient reportsno speech difficulties,no difficulty expressing formulated concepts,no difficulty with fine manipulative tasks,no difficulty writing/copying,no slowed reaction time, anddoes not knock things over when trying to pick them up.Functional AbilityFor hearing, patient reportsno loss of hearing. For vision, patient reportsno vision problems. For activities of daily living, patient reportsable to bathe with limited or no assistance,able to contol urination and bowels,able to dress with limited or no assistance,able to feed self with limited or no assistance,able to get out of chair or bed with limited or no assistance,able to groom with limited or no assistance, andable to toilet with limited or no assistance. For instrumental activities of daily living, patient reportsable to do house work with limited or no assistance,able to grocery shop with limited or no assistance,able to manage medications with limited or no assistance,able to manage money with limited or no assistance,able to prepare meals with limited or no assistance, andable to use the phone with limited or no assistance. For falls risk assessment, patient reportsno frequent falls while walking,no fall in the past year,no fall since last visit, andno dizziness/vertigo. For home safety, patient reportsno unsafe chidi hazzards,no unsafe stairs,no unsafe gas appliances,working smoke/co detectors,wears protective head gear for biking/high velocity,use of seatbelts,practicing 'safer sex',no vision or hearing loss while driving,no fire arms,has hand bars in the bathroom/shower, andgood lighting in the home.ROS as noted in the HPI pt here for int check pt no longer does mammograms due to age per herrecent gi referral constipation and extensive diverticular diseasept declined referral and did not go pt had ent eval for hoarsesness this winter pt still sees pain management and cards meds revd chronic issues are stable pt denies , machado, abd pain, constipation, diarrhea, change in appetite. no rash.no mood issues pt is concerned that macular degeneration is causing vertigohead feels off. no pain. seeing opthamology. pt is continuing to work with pain management and nuerosurgery discussed mri of head for dizziness. hallpike sherice exercises really helped. and pt will continue to use w great benefit per her Chase Baker MD [address], [place], [address], [place] [facility] 01/15/2025 09:44:38 01/29/2025 text/html PT is here for valium rx. pt is having mri on back. disc uds. Anil Toure PA-C [address], [place], [address], [place] [facility] 01/29/2025 10:38:27 OBGyn Episode No OBEpisode recorded.
--- OUTSIDE RECORDS SUMMARY | 2025-05-16 12:08 | XMS_ITS | Continuity of Care Document ---
Author Organization [place] - [facility] - [place] & [place], [facility] Heart Address [address] [place] [address] Care Team Providers Care Hogshead Cooper Name Role Phone MATIAS SANCHEZ Grounds And Nursery Specialist [facility] CHASE BAEKR Primary Care Provider Assessment Encounter Date Assessment Date Assessment LastModified by Organization Details LastModified Time 05/01/2025 05/01/2025 Patient Education was printed, I have reviewed [...] activity. - This note was dictated using Property[employer] software. If something is unclear, or does not make sense, please do not hesitate to contact our office at [phone] for clarification. [email or web address] Not available 05/01/2025 12:52:45 [...] Procedures None recorded. Surgeries None recorded. Imaging CT, angiogram , coronary arteries, w/wo contrast 2024 025 [email or web address] Not available 05/09/2025 07:35:09 US, duplex, carotid artery 2024 025 RIKA [facility], [address] [place] [address] , [place], [address], 05/11/2025 11:42:07 electroca rdiogram 2024 025 uri [facility], [address] [place] [address] [address], [place], [address], 05/02/2025 11:44:14 Medication Orders None recorded. Patient TargetsNo targets recorded. Patient InstructionsNo instructions recorded. Reason for Referral None Reported. Results Created Date Observation Date Name Description Value Unit Range Abnormal Flag Note LastModifiedBy Organization Detail LastModifiedTime 05/01/20 samira moreira diogr am No observ ation record ed. [email or web address] Not Available 2024 11:51:28 05/01/2005/02/2025 samira bellogr am No observ ation record ed. RIKA [place] [address], [place], [address], 05/02/2025 14:08:16 05/09/20 XR, pelcherrie s No observ ation record ed. RIKA Helton [facility] [address] [facility] , [place], [address], 05/09/2025 13:50:42 05/11/2005/11/2025 US, raciel x, carot id arter y [facility] Name: RAFIA GUY [address] Phys: [place] [address] : 1934 Age: 89 Sex: F Acct: [id number] Loc: G. PHONE #: Exam Date: 2024 Status : DEP CLI FAX #: Rad# [id number] Unit# [id number] Admit Date: 2024 EXAMS: CPT CODE: [id number] [id number] CAROTI D DUPLEX DOPPLE R [id number] PROCED URE: US CAROTI D DOPPLE R [...] Common caroti d artery : 67-70 cm/s Core Drier al caroti d artery : 55-108 cm/s Supervisor Loading al caroti d artery : 124 cm/s Right ICA/CC A ratio: 1.5 Plaque : Mild to modera te scatte red plaque Verteb ral artery : Antegr ashlee. 91 cm/s LEFT: Common caroti d artery : 91-150 cm/s Core Drier al caroti d artery : 82-117 cm/s Supervisor Loading al caroti d artery : 133 cm/s Left ICA/CC A ratio: 0.8 Plaque : Mild scatte red plaque Verteb ral artery : Antegr ashlee. 67 cm/s IMPRES KRISTINA: No hemody namica lly signif icant stenos is (great er than 50%) within the extrac ranial employee communications intern al caroti d arteri es. Electr onical ly signed by: Zechariah perez MD 2024 11:37 AM EDT RP Workst ation: [id number] Electr onical ly Signed by ZECHARIAH PEREZ MD on 2024 at 1132 Report ed and signed by: ZECHARIAH TRAN MD PAGE 1 Signed Report (JOVAN NUED) [facility] Name: RAFIA GUY KEN [facility] [email or web address] Phys: [place] [address] : 1934 Age: 89 Sex: F Acct: [id number] Loc: G. PHONE #: [phone] Exam Date: 2024 Status : DEP CLI FAX #: [phone] Rad# [id number] Unit# [id number] Admit Date: 2024 EXAMS: CPT CODE: [id number] 682 CAROTI D DUPLEX DOPPLE R [id number] CC: Seng Baker MD; Joana aguilera APRN Dictat ed Date/T ree: 2024 (1132) Techno logist : LINDSA Y DARBY Transc ribed Date/T ree: 2024 (1132) Transc riptio nist: DR.IND AGGARWAL Electr onic Signat ure Date/T ree: 2024 (1132) Printe d Date/T ree: 2024 (1140) BATCH NO: N/A PAGE 2 Signed Report CC'ed Logic: Orderi ng Provid er: JURGEN WILKINS Attend ing Provid er: JURGEN WILKINS Referr ing Provid er: JURGEN WILKINS Consul ting Provid er: SAMUEL LOU [email or web address] [place] [address], [place], [address], 05/11/2025 17:03:41 Result Notes None recorded. Problems Name Problem SNOMED Code Status Onset Date Resolution Date Notes Provider Name and Address Organization Details Recorded Time Essential hypertension 30286104 Active 2022 RICHIE KAUR NP, S [facility] [employer] [facility],Julissa te [address] [place] [address], [address], [place] [facility] Suzette 3 12:21:15 Coronary arterioscleros is 26433328 Active 2022 RICHIE KAUR NP, S [facility] [employer] [facility],[address], [address], [place] [facility] [place] 3 12:21:17 Mitral valve regurgitation 63457610 Active 2022 RICHIE KAUR NP, S [facility] [employer] [facility],Julissa te [address] [place] [address], [address], [place] [facility] & [place] 3 12:21:18 Tachycardia 3985919 Active 2022 RICHIE KAUR NP, S [facility] [employer] [facility],Julissa te [address] [place] [address], [address], [place] [facility] [place] 3 12:21:19 Bradycardia 99153437 Active 2022 RICHIE KAUR NP, S [facility] [employer] [facility],Julissa te [address] [place] [address], [address], [place] [facility] & [place] 3 12:21:21 Diastolic dysfunction 2311002 Active 2022 Matias Sanchez MD [facility] [employer] [facility],Julissa [address], [address], [place] [facility] & [place] 3 10:59:58 Dyspnea on exertion 93701875 Active 2023 Matias Sanchez MD [facility] [employer] [facility],[place] [address], [place], [address], [facility] [place] - [place] 4 11:08:02 Chest pain 54017013 Active 2024 Matias Sanchez MD [address] [place] [address],[address], [address], [facility] - [place] - [place] 5 11:17:19 Bilateral carotid artery occlusion 796955720 Active 2024 Matias Sanchez MD [address] [place] [address],[address], [address], [facility] - [place] - [place] 5 11:36:46 Problem Notes None recorded. Procedures Surgical History Date Name Laterality Status Provider Name and Address Organization Details Recorded Time Back Surgery completed Tracie aguilera [facility] & [place] 04/05/2024 10:40:31 Partial hysterectomy completed Toshia LOWE [facility] & [place] 05/28/2022 11:30:55 primary laminectomy excision of lumbar intervertebral disc completed Toshia Reynolds [facility] & [place] 05/28/2022 11:40:55 complete repair of rotator cuff completed Toshia Reynolds [facility] & [place] 05/28/2022 11:42:09 cholecystectomy completed Toshia Reynolds [facility] & [place] 05/28/2022 11:43:02 tonsillectomy completed Toshia LOWE [facility] & [place] 05/28/2022 11:43:10 Imaging Results None recorded. Procedure [...] Details Last Updated DateTime 5 170.18 cm 24.3 kg/m2 96965.8 2 g 96 % 96 % 61 /min 16 /min 128/82 mm[Hg] Agueda Sanchez [facility] & [place] 5 10:33:38 Social History Question Answer Notes LastModified by Ketto Details LastModified Time Tobacco Smoking Status Never Smoker Toshia Ez trammell, [facility] & [place] 05/28/2022 11:30:40 What Is Your Level Of [...] use any illicit or recreational drugs? No [email or web address] Information not available 08/10/2022 Do you or have you ever used any other forms of tobacco or nicotine? No Information not available 09/13/2023 What is your level of alcohol consumption? None [email or web address] Information not available 08/10/2022 What is your exercise level? Moderate [email or web address] Information not available 03/01/2023 Mental Status None [...] 1 completed Yelena trammell, [place] [facility] & [place] 08/10/2022 11:21:35 Influenza, high-dose, quadrivalent, PF 1 completed Yelena Sal null, [place] [facility] & [place] 08/10/2022 11:21:35 COVID-19, mRNA, LNP-S, PF, 100 mcg/0.5mL dose or 50 mcg/0.25mL dose 1 completed Yelena Sal null, [place] [facility] & [place] 08/10/2022 11:21:35 COVID-19, mRNA, LNP-S, PF, 100 mcg/0.5mL dose or 50 mcg/0.25mL dose 1 completed Yelena trammell, [place] [facility] & [place] 08/10/2022 11:21:35 Tdap 2 completed Yelena trammell, [place] [facility] & [place] 08/10/2022 11:21:35 zoster recombinant 2 completed Yelena Sal null, [place] [facility] [place] 08/10/2022 11:21:35 zoster recombinant 2 completed Yelena Sal null, [place] [facility] [place] 08/10/2022 11:21:35 Pneumococcal conjugate PCV20, polysaccharide [id number] conjugate, adjuvant, PF 2 completed Yelena Sal null, [place] [facility] [place] 08/10/2022 11:21:35 Influenza, high-dose, quadrivalent, PF 2 completed Not Available [facility] 05/09/2025 13:37:44 COVID-19, mRNA, LNP-S, bivalent, PF, 50 mcg/0.5 mL or 25mcg/0.25 mL dose 3 completed Not Available [facility] 05/09/2025 13:37:44 Influenza, high-dose, quadrivalent, PF 3 completed Not Available [facility] 05/09/2025 13:37:44 Influenza, high-dose, trivalent, PF 4 completed Not Available [facility] 05/09/2025 13:37:44 Past Encounters Encounter ID Performer Location Encounter Start Date Encounter Closed Date Diagnosis/Indication Diagnosis SNOMED-CT Code Diagnosis ICD10 Code Diagnosis IMO Codes Diagnosis Note [id number] RICHIE KAUR NP, S [place] [address] [address] 05/01/2025 09:32:07 05/01/2025 11:13:45 Essential hypertension 87644935 I10 Tachycardia 6329597 R00. 0 Mitral irish ve regurgitation 52514951 I34.0 Coronary arteriosclerosis 51356315 I25.10 Diastolic dysfunction 35 94691 I51.9 Bilateral carotid artery occlusion 163472133 I65.23 891748 Angina pectoris 85400074 0 I20.9 05820 Health Concerns Section Related Observation LastModified by Organization Detai ls LastModified Time None Recorded Concern Status LastModified by Organization Details LastModified Time None Recorded Payers Encounter Date Sequence Insurance Name Policy Number Policy Mccabe Covered Member ID Mccabe Member ID Guarantor Name 05/01/2025 1 [place] Cecilia Kyle [id number] Cecilia Kyle 05/01/2025 2 DEVIN (MEDICARE SUPPLEMENT) Cecilia Kyle [id number] Cecilia Kyle Notes Date Note Type Note Provider Name and Address Organization Details Recorded Time 05/01/2025 text/html ROS as noted in the [...] complaints or concerns. RICHIE KAUR NP, S [address], [place], [address], [facility] & [place] 05/01/2025 12:54:16 OBGyn Episode No OBEpisode recorded.
[2025-05-16 12:11] VITALS: BP 140/55; PULSE 57; RESP 18; TEMP 36.5; O2SAT 95
[2025-05-16 12:11] LABS: Chloride 97 mmol/L (98-107); Sodium 133 mmol/L (136-145)
[2025-05-16 12:12] LABS: Potassium 4.7 mmoL/L (3.5-5.1)
[2025-05-16 12:14] LABS: Blood Urea Nitrogen 16 mg/dl (7-17); Creatinine Clearance Estimated 41 mL/min (50-200); Creatinine,Serum 0.60 mg/dl (0.52-1.04); Estimated Glomerular Filt Rate 94 ml/min (>60); GFR (African American) 114 ML/MIN (>60)
[2025-05-16 12:15] LABS: Anion Gap 9.7 mEq/L (5-15); Calcium 9.1 mg/dl (8.4-10.2); Carbon Dioxide 31 mmol/L (22.0-30.0); Glucose 111 mg/dl (74-100)
[2025-05-16 12:36] VITALS: BP 155/65; PULSE 54; O2SAT 98
[2025-05-16 12:39] VITALS: BP 135/63; PULSE 57; O2SAT 98
[2025-05-16 12:42] VITALS: BP 112/54; PULSE 62; O2SAT 98
[2025-05-16] MEDS: 0.9 % SODIUM CHLORIDE 50 ML VIAL IV (12:49)
[2025-05-16] MEDS: SODIUM CHLORIDE 0.9% 10ML SYR (RAD ONLY) 10 ML IV (12:50)
[2025-05-16] MEDS: IOPAMIDOL-370 (76%);100ML BOTTLE 85 ML IV (12:50)
[2025-05-16 12:53] VITALS: BP 135/90; PULSE 61; O2SAT 95
[2025-05-16] MEDS: NITROGLYCERIN 0.4MG SL TABLET SL (12:54)
== END 2025-05-16 23:59 | disposition home or self-care (01) ==
PROVIDERS: PCP Registered Nurse; Visit Provider Registered Nurse
DX: I35.8 Other nonrheumatic aortic valve disorders (principal); I34.81 Nonrheumatic mitral (valve) annulus calcification; I70.0 Atherosclerosis of aorta; R91.8 Other nonspecific abnormal finding of lung field; I20.9 Angina pectoris, unspecified
CPT/HCPCS: 75574; 80048; Q9967